=== PATIENT | female | born 1995 | race Two or more races ===

== ENCOUNTER 2020-10-18 15:13 | Emergency (ER) | payer OTHER, SELFPAY ==
[2020-10-18 15:14] VITALS: BP 129/80; PULSE 80; RESP 16; TEMP 36.2; O2SAT 97; BMI 36.6
--- NOTE | 2020-10-18 16:31 | ED.DENTAL ---
HPI - Dental/Oral General Chief complaint: Dental/Oral Stated complaint: mouth abscess Time Seen by Provider: 10/18/20 16:30 Source: patient Mode of arrival: ambulatory Limitations: language barrier History of Present Illness HPI Narrative: 25 y/o female presenting with left lower dental pain x1 week. She has had pain in this tooth on/off for several months. She reports the pain is now unbearable and she has a hard time sleeping due to the pain. She denies fever, chills, jaw swelling, facial swelling. She has not taken any medications for the pain. MD Complaint: tooth pain Location: Tooth # (20) Teeth map: 1. dental decay and tenderness Onset (ago): day(s) (7-8) Duration: constant Severity: severe Relieving factors: nothing Exacerbating factors: chewing and cold Context: history of dental caries Associated symptoms: gum swelling Treatment prior to arrival: none Related Data Previous Rx's Medication Instructions Recorded clindamycin HCl 300 mg PO Q8H #21 cap 10/18/20 ibuprofen 600 mg PO Q8H PRN #20 tab 10/18/20 tramadol 50 mg PO Q8H PRN #7 tab 10/18/20 Allergies Allergy/AdvReac Type Severity Reaction Status Date / Time No Known Allergies Allergy Verified 10/18/20 15:17 Review of Systems Review of Systems: Constitutional: No Fever, No Chills ENT/Mouth: No sore throat, No Rhinorrhea, No Swallowing Difficulty, +dental pain Cardiovascular: No Chest Pain, No SOB Gastrointestinal: No Nausea, No Vomiting, No Diarrhea, No abdominal Pain Genitourinary: No Dysuria, No Urinary Frequency, No Hematuria Musculoskeletal: No joint pain, No Myalgias Skin: No Skin Lesions, No rash Neuro: No Weakness, No Numbness, No Dizziness, + Headache Psych: No Anxiety/Panic, No Depression Heme/Lymph: No Bruising, No Lymphadenopathy PMFSH Past Medical History Attestation statement: The following information was validated with the patient. Social History Social History Advance Directives: No Advance Directives Information Provided: No Physical Exam Vital Signs: Vital Signs: Last Vital Signs Temp 97.2 F 10/18/20 15:14 Pulse 80 10/18/20 15:14 Resp 16 10/18/20 15:14 BP 129/80 10/18/20 15:14 Pulse Ox 97 10/18/20 15:14 Body Mass Index 36.6 Appearance: Alert. Oriented X3. No acute distress. HEENT: normal external inspection. Tooth #20 in left lower jaw has significant dental decay with moderate tenderness, mild gingival erythema and tenderness, no fluctance or mass. Neck is supple without LAD. no facial swelling. No trismus CVS: Normal heart rate and rhythm. Pulses normal. Respiratory: No respiratory distress. Skin: Skin warm and dry. Normal skin color. Normal skin turgor. No rashes. Extremities: atraumatic, no edema Neuro: Oriented X 3. No motor deficit. No sensory deficit. Course Course Course Narrative: 25 y/o female presenting with acute on chronic tooth pain - no abscess on exam. Will give Rx for abx, pain meds and NSAID. Given dental referral sheet and she agrees to f/u with dental this week. MDM - Dental/Oral Differential Diagnosis Differential diagnosis: Likely gingival abscess, dental caries, toothache, dental abscess and fracture of tooth Critical Care Time Critical Care Time Critical Care Time: No Discharge Plan Discharge Clinical Impression: Toothache Patient Disposition: Home, Self-Care Instructions: Toothache (ED) Additional Instructions: Your tooth is infected but there is no drainable abscess at this time. Take the prescribed antibiotic as directed. Follow up with a dentist within one week. If pain worsens or if you develop facial swelling, come back to the ER for further evaluation. Prescriptions: New clindamycin HCl 300 mg capsule 300 mg PO Q8H Qty: 21 RF: 0 ibuprofen 600 mg tablet 600 mg PO Q8H PRN (Reason: fever or pain) Qty: 20 RF: 0 tramadol 50 mg tablet 50 mg PO Q8H PRN (Reason: pain) Qty: 7 RF: 0 Discharge Date/Time: 10/18/20 16:54 Print Language: Bulgarian
== END 2020-10-18 16:54 | disposition home or self-care (01) ==
PROVIDERS: Emergency Provider Emergency Medicine
DX: K08.89 Other specified disorders of teeth and supporting structures (principal)
CPT/HCPCS: 99283

== ENCOUNTER 2021-03-28 08:13 | Outpatient (REF) | payer OTHER, SELFPAY ==
[2021-03-28 11:30] LABS: Glucose Urine UA NEG (NEG); Leukocyte Esterase Urine NEG (NEG); Nitrite Urine NEG (NEG); Specific Gravity - Urine >= 1.030 (1.005-1.025); Urine Blood NEG (NEG); Urine Ketones NEG (NEG); Urine Protein TRACE MG/DL (NEG-TRACE)
[2021-03-28 11:36] LABS: Appearance Urine TURBID; Color Urine YELLOW
[2021-03-28 11:37] LABS: Hematocrit 36.4 % (37-47); Hemoglobin 11.6 g/dl (12.0-16.0); Mean Corpuscular HGB Conc 31.9 g/dl (31.0-35.0); Mean Corpuscular Hemoglobin 27.7 pg (27.0-33.0); Mean Corpuscular Volume 86.9 fL (80-98); Mean Platelet Volume 10.7 fL (9.4-12.3); Platelet Count 313 X10*3/uL (160-400); Red Blood Count 4.19 X10*6/uL (4.20-5.50); Red Cell Distribution Width 14.6 % (11.0-16.0); White Blood Count 7.7 X10*3/uL (4.8-10.8)
[2021-03-28 11:46] LABS: Alanine Aminotransferase 16 U/L (0-31); Albumin Level 4.3 g/dL (3.5-5.0); Alkaline Phosphatase 78 U/L (39-117); Anion Gap 14 (12-20); Aspartate Amino Transferase 18 U/L (5-31); Bilirubin Total 0.4 mg/dL (0.0-1.0); Blood Urea Nitrogen 13 mg/dL (9-16); Carbon Dioxide 23 mmol/L (22-29); Chloride 105 mmol/L (96-108); Cholesterol 151 mg/dL; Estimated Glomerular Filt Rate > 60; Glucose Fasting 92 mg/dL (60-99); HDL Cholesterol 50 mg/dL; LDL Cholesterol Calculated 87 mg/dl; Potassium 4.4 mmol/L (3.3-5.1); Sodium 138 mmol/L (135-145); Total Protein 7.3 g/dL (6.5-8.0); Triglycerides 72 mg/dL
[2021-03-28 11:57] LABS: Amorphous Sediment Urine 4+ /LPF; RBC Urine 0-2 /HPF (0); Squamous Epithelial Cell Urine 1+ /LPF; WBC Urine 0-2 /HPF (0-4)
[2021-03-28 11:58] LABS: TSH reflex Free T4 2.17 uIU/mL (0.32-4.0)
== END 2021-03-28 08:14 | disposition home or self-care (01) ==
LOC: HO.HMGCLDS 08:13
PROVIDERS: PCP Internal Medicine; Visit Provider Internal Medicine
DX: Z00.00 Encounter for general adult medical examination without abnormal findings (principal); J45.909 Unspecified asthma, uncomplicated; F32.9 Major depressive disorder, single episode, unspecified
CPT/HCPCS: 36415; 80053; 80061; 81001; 84443; 85027

== ENCOUNTER 2021-05-03 09:10 | Outpatient (REF) | payer OTHER, SELFPAY ==
[2021-05-03 09:20] VITALS: BP 116/77; PULSE 77; RESP 16; TEMP 36.9; O2SAT 100; BMI 39.0
--- NOTE | 2021-05-03 09:28 | ED.GENADULT ---
HPI - General Adult General Chief complaint: Extremity Injury, Lower Stated complaint: groin pain Time Seen by Provider: 05/03/21 09:18 Source: patient Mode of arrival: ambulatory Limitations: no limitations History of Present Illness HPI narrative: 26-year-old female with past medical history of asthma and depression his here today for complaining of left groin pain. 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 She has been using naproxen and reports that the pain is better. Patient is here today reporting that she continues to work and using her muscles and her symptoms are not getting any better. Patient denies fall, or any other injury. Related Data Previous Rx's Medication Instructions Recorded albuterol sulfate 90 mcg/actuation 2 puff INHALATION Q6H PRN #8.5 g 03/28/21 aerosol inhaler nicotine 14 mg/24 hr daily 1 patch TRANSDERMAL DAILY #28 ea 03/28/21 transdermal patch cyclobenzaprine 10 mg tablet 10 mg PO BID PRN #10 tab 05/03/21 Allergies Allergy/AdvReac Type Severity Reaction Status Date / Time No Known Allergies Allergy Verified 03/28/21 07:47 Review of Systems Review of Systems: Constitutional : No Weight loss, No Fever, No Chills, No Night Sweats, No Fatigue, No Malaise ENT/Mouth : No Hearing loss, No Ear Pain, No Nasal Congestion, No Sinus Pain, No Hoarseness, No sore throat, No Rhinorrhea, No Swallowing Difficulty Eyes: No Eye Pain, No Swelling, No Redness, No Foreign Body, No Discharge, No Vision Changes Cardiovascular : No Chest Pain, No SOB, No Dyspnea on Exertion, No Orthopnea, No Edema, No Palpitations Respiratory : No Cough, No Sputum, No Wheezing, No Smoke Exposure, No Dyspnea Gastrointestinal : No Nausea, No Vomiting, No Diarrhea, No Constipation, No abdominal Pain, No Hematochezia, No Melena Genitourinary : no irregular bleeding, No Dysuria, No Urinary Frequency, No Hematuria, No Urinary Incontinence, No Urgency, No Flank Pain, No Urinary Flow Changes, No Hesitancy Musculoskeletal : No joint pain, No Myalgias, No Joint Swelling, left groin pain Skin : No Skin Lesions, No rash Neuro : No Weakness, No Numbness, No Paresthesias, No Loss of Consciousness, No Dizziness, No Headache Psych : No Anxiety/Panic, No Depression, No SI/HI/AH/VH, No Social Issues, Yes all other systems are reviewed and are negative [facility] Past Medical History Medical History (Updated 05/03/21 @ 09:42 by Isabelle Peres [facility]) Annual physical exam Asthma Depression Overweight Family History Family History (Updated 03/28/21 @ 07:48 by Ruthann Salcedo [facility]) Father No problems noted. Mother No problems noted. 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 Alcohol intake: current Alcohol intake frequency: a few times a week Patient Tobacco Use Status: Current everyday Tobacco user Cigarettes Per Day: 6 Years Smoked: 4 e-Cigarette/Vaping Use: Never Used Advance Directives: No Advance Directives Information Provided: Yes Patient : No service: No Current occupational status: employed Physical Exam Vital Signs: Vital Signs: Last Vital Signs Temp 98.4 F 05/03/21 09:20 Pulse 77 05/03/21 09:20 Resp 16 05/03/21 09:20 BP 116/77 05/03/21 09:20 Pulse Ox 100 05/03/21 09:20 Body Mass Index 39.0 Const: General: healthy appearing, no acute distress and well developed Nutritional Appearance: well nourished Orientation/consciousness: patient oriented x3 Neck: Neck: Yes normal visual inspection, Yes full ROM and Yes trachea midline Thyroid: Thyroid normal Resp: Auscultation: clear to auscultation bilaterally Cardio: Rate: regular rate Rhythm: regular rhythm GI: Inspection: Yes normal to inspection and No distended Palpation (GI): Soft to palpation, not firm, nontender, no guarding and No hepatosplenomegaly present Auscultation: normal bowel sounds Skin: General skin exam: elasticity normal, turgor normal and dry skin Neuro: General: patient oriented x3 Extrem: Other: Left groin tenderness Course Course Course Narrative: 26-year-old female is here today for complaining of groin pain. 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 Patient denies any swelling, abscess or tenderness. Patient has good pulses in inguinal, popliteal and pedal areas. Will send her home with cyclobenzaprine. Patient will follow-up with her PCP for physical therapy if warm compresses and medication will not help. Patient is agreeable to this plan Discharge Plan Discharge Clinical Impression: Groin pain Qualifiers: Laterality: left Qualified Code(s): R10.32 - Left lower quadrant pain Patient Disposition: Home, Self-Care Interventions: ED Discharge Assessment Last Done: 05/03/21 10:22 Discharge Date/Time: 05/03/21 10:23
[2021-05-03] MEDS: Cyclobenzaprine HCl 10 MG TABLET PO (09:45)
== END 2021-05-03 10:50 | disposition home or self-care (01) ==
LOC: HO.ED 10:49
PROVIDERS: Emergency Provider Emergency Medicine; PCP Internal Medicine; Visit Provider Nurse Practitioner Family
DX: Z04.2 Encounter for examination and observation following work accident (principal); R10.32 Left lower quadrant pain; F17.210 Nicotine dependence, cigarettes, uncomplicated
CPT/HCPCS: 99283

== ENCOUNTER 2021-05-12 14:07 | Outpatient (REF) | payer OTHER, SELFPAY ==
--- NOTE | ~2021-05-12 | XR_ITS ---
EXAMINATION: XR HIP, LEFT CLINICAL INFORMATION: Pain COMPARISON: None TECHNIQUE: Two views of the left hip. FINDINGS: Bones and soft tissues are normal. No fracture. Alignment is anatomic. Hip joint space is maintained. XR/XR hip LT min 2V IMPRESSION: Normal left hip.
== END 2021-05-12 14:08 | disposition home or self-care (01) ==
LOC: HO.HMGCX 14:07
PROVIDERS: PCP Internal Medicine; Visit Provider Internal Medicine
DX: Z13.89 Encounter for screening for other disorder (principal)
CPT/HCPCS: 73502

== ENCOUNTER 2021-12-08 20:19 | Emergency (ER) | payer OTHER, SELFPAY ==
[2021-12-08 22:00] VITALS: BP 137/65; PULSE 74; RESP 14; O2SAT 100; BMI 39.5
--- NOTE | 2021-12-08 23:26 | ED.GENADULT ---
HPI - General Adult General Chief complaint: General Medical Stated complaint: Pelvic pain Time Seen by Provider: 12/08/21 22:37 Source: patient and RN notes reviewed Mode of arrival: ambulatory Limitations: language barrier and other (Friend translating per patient's request) History of Present Illness HPI narrative: Patient is here today for right inguinal pain. Patient reports that she has been having this pain for few months and just recently the pain is getting worse. 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 Patient states that today she had to leave work because her pain was getting worse. Patient reports that there is no radiation of the pain to the any other areas. Patient denies any urinary symptoms. Patient denies any swelling, ingrown hair, no fever chills. Patient states that the pain is worse when she is standing on her legs as well as when she is touching her upper thigh muscle. Patient denies any injury. Denies any hip pain. Onset (ago): month(s) Related Data Previous Rx's Medication Instructions Recorded albuterol sulfate 90 mcg/actuation 2 puff INHALATION Q6H PRN #8.5 g 03/28/21 aerosol inhaler meloxicam 15 mg tablet 15 mg PO DAILY #10 tab 05/12/21 sumatriptan succinate 50 mg tablet See Rx Instructions PO .COMPLEX #7 10/05/21 tab cyclobenzaprine 10 mg tablet 10 mg PO BEDTIME PRN #10 tab 12/09/21 ibuprofen 600 mg tablet 600 mg PO Q8H PRN #20 tab 12/09/21 Allergies Allergy/AdvReac Type Severity Reaction Status Date / Time No Known Allergies Allergy Verified 05/12/21 13:36 Review of Systems Review of Systems: Constitutional : No Weight loss, No Fever, No Chills, No Night Sweats, No Fatigue, No Malaise ENT/Mouth : No Hearing loss, No Ear Pain, No Nasal Congestion, No Sinus Pain, No Hoarseness, No sore throat, No Rhinorrhea, No Swallowing Difficulty Eyes: No Eye Pain, No Swelling, No Redness, No Foreign Body, No Discharge, No Vision Changes Cardiovascular : No Chest Pain, No SOB, No Dyspnea on Exertion, No Orthopnea, No Edema, No Palpitations Respiratory : No Cough, No Sputum, No Wheezing, No Smoke Exposure, No Dyspnea Gastrointestinal : No Nausea, No Vomiting, No Diarrhea, No Constipation, No abdominal Pain, No Hematochezia, No Melena Genitourinary : no irregular bleeding, No Dysuria, No Urinary Frequency, No Hematuria, No Urinary Incontinence, No Urgency, No Flank Pain, No Urinary Flow Changes, No Hesitancy Musculoskeletal : No joint pain, No Myalgias, No Joint Swelling, right groin pain Skin : No Skin Lesions, No rash Neuro : No Weakness, No Numbness, No Paresthesias, No Loss of Consciousness, No Dizziness, No Headache Psych : No Anxiety/Panic, No Depression, No SI/HI/AH/VH, No Social Issues, Yes all other systems are reviewed and are negative [facility] Past Medical History Medical History (Updated 12/09/21 @ 00:23 by Isabelle Peres [facility]) Annual physical exam Asthma Depression Headache Overweight Family History Family History Father No problems noted. Mother No problems noted. 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 Alcohol intake: current Alcohol intake frequency: a few times a week Patient Tobacco Use Status: Current everyday Tobacco user Cigarettes Per Day: 6 Years Smoked: 4 e-Cigarette/Vaping Use: Never Used Advance Directives: No Patient : No service: No Current occupational status: employed Physical Exam ED Vital Signs: Vital Signs - 24 hr 12/08/21 22:00 Pulse Rate 74 Respiratory Rate 14 Blood Pressure 137/65 Pulse Oximetry 100 BMI result Body Mass Index 39.5 Const General: cooperative, healthy appearing and comfortable Neck Neck: Yes normal visual inspection, Yes full ROM, Yes trachea midline and Yes supple Resp Effort & Inspection: normal respiratory effort and able to speak in complete sentences Auscultation: clear to auscultation bilaterally Cardio Rate: regular rate Heart sounds: S1 normal heart sound present and S2 normal heart sound present General: Yes no CVA tenderness Back/Spine/Pelvis Back: no CVA tenderness Thoracic/Lumbar Spine: thoracic and lumbar spine normal to inspection Pelvis: no pain with anterior-posterior compression Extrem Other: Right inguinal pain and right upper thigh tenderness. General: Yes normal to inspection, Yes full ROM and Yes capillary refill normal Course Course Course Narrative: Patient is here today for right inguinal pain. Patient reports that she has been having this pain for few months and just recently the pain is getting worse. 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 Patient states that today she had to leave work because her pain was getting worse. Patient reports that there is no radiation of the pain to the any other areas. Patient denies any urinary symptoms. Patient denies any swelling, ingrown hair, no fever chills. Patient states that the pain is worse when she is standing on her legs as well as when she is touching her upper thigh muscle. Patient denies any injury. Denies any hip pain. Mild tenderness to inguinal area mostly to her psoas major, sartorius and pectineus muscle. Will medicate her with ibuprofen and cyclobenzaprine. Patient will be sent home to follow-up with her PCP Reevaluation(s) Reevaluation #1: Patient reports that she is feeling much better after cyclobenzaprine. Patient will be discharged home to follow-up with her PCP. She might knee physical therapy. 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 Discharge Plan Discharge Clinical Impression: Groin pain, Muscle pain Patient Disposition: Home, Self-Care Instructions: Muscle Strain (ED), Groin Pain (ED) Additional Instructions: Lo vieron aqu? hoy por dolor inguinal derecho y distensi?n muscular. Evite recoger objetos pesados ??nadira los pr?ximos d?as. Puede basilio un relajante muscular nadira los pr?ximos dos d?as para ayudarlo con el dolor. Tambi?n puede basilio ibuprofeno para ayudar con la inflamaci?n. Puede regresar al departamento de emergencias si hossein s?ntomas empeoran o si experimenta alg?n s?ntoma preocupante adicional Prescriptions: New cyclobenzaprine 10 mg tablet 10 mg PO BEDTIME PRN (Reason: muscle spasm) Qty: 10 0RF ibuprofen 600 mg tablet 600 mg PO Q8H PRN (Reason: pain) Qty: 20 0RF No Action sumatriptan succinate 50 mg tablet See Rx Instructions PO .COMPLEX Qty: 7 5RF Rx Instructions: take 1 tab at onset of headache; if no relief may repeat 1 tab after at least 2 hrs; max = 4 tabs/24 hr PO albuterol sulfate 90 mcg/actuation HFA aerosol inhaler 2 puff inhalation Q6H PRN (Reason: shortness of breath or wheezing) Qty: 8.5 0RF meloxicam 15 mg tablet 15 mg PO DAILY Qty: 10 0RF Referrals: Tanya Billy MD [Primary Care Provider] - 1 week (Groin pain, muscle strain) Stand Alone Forms: Work/School Release Interventions: ED Discharge Assessment Last Done: 12/09/21 00:38 Discharge Date/Time: 12/09/21 00:40
[2021-12-08] MEDS: Ibuprofen 600 MG TABLET PO (23:46)
[2021-12-08] MEDS: Cyclobenzaprine HCl 10 MG TABLET PO (23:46)
== END 2021-12-09 00:40 | disposition home or self-care (01) ==
PROVIDERS: Emergency Provider Emergency Medicine Emergency Medical Services; PCP Internal Medicine
DX: R10.30 Lower abdominal pain, unspecified (principal); M79.10 Myalgia, unspecified site
CPT/HCPCS: 99283; 99284

== ENCOUNTER 2022-01-08 13:00 | Outpatient (RCR) | payer OTHER, SELFPAY ==
--- NOTE | 2021-12-13 09:58 | MHC.PT.EP ---
[facility] [place] Office [place] Office [place] Office [address] Pratima Herrera [address] [phone] F: [phone] F: [phone] F: [phone] F: [phone] Physical Therapy Plan of Care Date of Evaluation: Date of Surgery: Diagnosis: L lower quadrant pain Assessment: 26 y/o female referred to PT with lower quadrant pain. She reports R groin pain for several months of insidious onset that results in pain and difficulty with walking, standing, sit to stands, stairs, and lifting heavy boxes. Examination shows decreased hip/ lumbar AROM, decreased muscle length of quads/hip ER/hip flexors, poor glut activation, decreased R hip flexor/glut strength, SI dysfunction, and impaired postural awareness. S/s consistent with hip flexor tendinopathy and ? overlapping SI dysfunction. Recommend PT 2x/week for 5 weeks to address impairments, implement HEP, and optimize functional mobility. Frequency and Duration: The patient will be seen 2x/week for 5 weeks Short Term Goals: 3 weeks 1. compliant with HEP 2. pt will report 50% decrease in pain with walking (IR 8/10) Senior Living Goals: 5 weeks 1. I with HEP and self management of sx 2. Pt will be able to ambulate > 30 min with pain < 3/10 3. Pt will be able to lift > 20# box from floor to hips with pain < 3/10 and proper mechanics. Treatment Plan: Modalities to reduce pain, spasms and effusion. Manual therapy to restore motion and function. Therapeutic exercise to improve strength and flexibility. Neuromuscular re-education for posture and balance. Therapeutic activities to return to functional activities of daily living. Electronically signed by: Kristina German PT Please sign and return to therapist. Thank you for your referral.
--- NOTE | 2022-02-13 13:47 | MHC.PT.DC ---
[facility] [place] Office [place] Office [place] Office [address] Pratima Herrera [address] [facility] [phone] F: [phone] F: [phone] F: [phone] F: [phone] Physical Therapy Discharge Report Diagnosis: L lower quadrant pain Date of Surgery: Date of Evaluation: 12/13/21 Date of Discharge: 02/13/22 Treatments to Date: 7 Cancellations to Date: 3 No Shows to Date: 0 Discharge Status: Improved Function Independent with HEP Visit Non-compliance Discharge Summary: Pt did not f/u with final visits and is therefore d/c At time of last visit, she was demonstrating improved tolerance for exercise, improved body mechanics, and strength. Electronically signed by: Kristina German PT Please sign and return to therapist. Thank you for your referral.
== END 2022-02-13 13:47 | disposition home or self-care (01) ==
LOC: HO.PT 13:00
PROVIDERS: Visit Provider Internal Medicine
DX: R10.32 Left lower quadrant pain (principal)
CPT/HCPCS: 97110; 97161; 97530

== ENCOUNTER 2022-03-29 08:42 | Outpatient (REF) | payer OTHER, SELFPAY ==
[2022-03-29 11:04] LABS: MANUAL DIFF FLAG NO
[2022-03-29 11:14] LABS: Appearance Urine CLEAR; Color Urine YELLOW; Glucose Urine UA NEG (NEG); Leukocyte Esterase Urine NEG (NEG); Nitrite Urine NEG (NEG); PH 5.5 (5.0-8.0); Specific Gravity - Urine >= 1.030 (1.005-1.025); Urine Blood NEG (NEG); Urine Ketones NEG (NEG); Urine Protein TRACE MG/DL (NEG-TRACE)
[2022-03-29 11:16] LABS: Basophils Percent Auto 0.4 % (0-2); Eosinophils Absolute Auto 0.1 X10*3/uL (0.0-0.4); Eosinophils Percent Auto 1.2 % (0-4); Hematocrit 36.5 % (37.0-47.0); Hemoglobin 11.9 g/dl (12.0-16.0); Imm Gran Abs Auto 0.04 X10*3/uL (0.00-0.03); Imm Gran Pct Auto 0.5 % (0.0-0.4); Lymphocytes Absolute Auto 1.9 X10*3/uL (1.2-4.9); Lymphocytes Percent Auto 22.3 % (20-40); Mean Corpuscular HGB Conc 32.6 g/dl (31.0-35.0); Mean Corpuscular Hemoglobin 28.3 pg (27.0-33.0); Mean Corpuscular Volume 86.7 fL (80.0-98.0); Mean Platelet Volume 11.3 fL (9.4-12.3); Monocytes Absolute Auto 0.7 X10*3/uL (0.1-1.2); Monocytes Percent Auto 7.6 % (2-11); Neutrophils Absolute Auto 5.8 x10*3/uL (2.0-8.3); Platelet Count 303 X10*3/uL (160-400); Red Blood Count 4.21 X10*6/uL (4.20-5.50); Red Cell Distribution Width 14.1 % (11.0-16.0); White Blood Count 8.6 X10*3/uL (4.8-10.8)
[2022-03-29 11:44] LABS: Mucus Urine 1+ /LPF; RBC Urine 0 /HPF (0); Squamous Epithelial Cell Urine 3+ /LPF; WBC Urine 0 /HPF (0-4)
[2022-03-29 12:00] LABS: TSH reflex Free T4 1.67 uIU/mL (0.32-4.0)
[2022-03-29 12:12] LABS: Alanine Aminotransferase 22 U/L (0-31); Albumin Level 4.3 g/dL (3.5-5.0); Alkaline Phosphatase 66 U/L (39-117); Anion Gap 11 (12-20); Aspartate Amino Transferase 19 U/L (5-31); Bilirubin Total 0.8 mg/dL (0.0-1.0); Blood Urea Nitrogen 15 mg/dL (9-16); Calcium 9.1 mg/dL (8.4-10.2); Carbon Dioxide 24 mmol/L (22-29); Chloride 106 mmol/L (96-108); Cholesterol 146 mg/dL; Estimated Glomerular Filt Rate > 60; Glucose Fasting 104 mg/dL (60-99); HDL Cholesterol 44 mg/dL; LDL Cholesterol Calculated 86 mg/dl; Potassium 4.5 mmol/L (3.3-5.1); Sodium 136 mmol/L (135-145); Total Protein 7.2 g/dL (6.5-8.0); Triglycerides 82 mg/dL
== END 2022-03-29 08:43 | disposition home or self-care (01) ==
LOC: HO.HMGCLDS 08:42
PROVIDERS: Visit Provider Internal Medicine
DX: Z00.00 Encounter for general adult medical examination without abnormal findings (principal); K21.9 Gastro-esophageal reflux disease without esophagitis
CPT/HCPCS: 36415; 80053; 80061; 81001; 84443; 85025

== ENCOUNTER 2022-09-27 09:03 | Outpatient (REF) | payer OTHER, SELFPAY ==
--- NOTE | 2022-09-27 09:09 | EMG_ITS ---
Right median and ulnar motor and sensory studies were performed. Right radial sensory study was performed and paraspinal muscles were tested with a needle. IMPRESSION: Mild right ulnar neuropathy across cubital tunnel. MD BERLIN Vuong/PK / [id number]
== END 2022-09-27 09:04 | disposition home or self-care (01) ==
LOC: HO.NEURO 09:03
PROVIDERS: PCP Internal Medicine; Visit Provider Internal Medicine
DX: G56.02 Carpal tunnel syndrome, left upper limb (principal)
CPT/HCPCS: 95886; 95909

== ENCOUNTER 2022-10-17 15:27 | Emergency (ER) | payer OTHER, SELFPAY ==
--- NOTE | ~2022-10-17 | XR_ITS ---
EXAMINATION: XR CHEST CLINICAL INFORMATION: Chest pain. COMPARISON: None TECHNIQUE: 2 views of the chest were obtained. FINDINGS: No significant abnormality is noted involving the heart, lungs, mediastinum, bony thorax or soft tissues. XR/XR chest 2V IMPRESSION: No acute cardiopulmonary process.
[2022-10-17 15:36] VITALS: BP 126/73; PULSE 78; RESP 19; TEMP 36.6; O2SAT 100; BMI 37.4
--- NOTE | 2022-10-17 15:37 | ED_ITS ---
HPI - Chest Pain General Chief Complaint: Chest Pain <Aranza Mendoza NP - Last Filed: 10/17/22 15:39> Stated Complaint: SOB, chest pain <Aranza Mendoza NP - Last Filed: 10/17/22 15:39> Time Seen by Provider: 10/17/22 17:36 <Aranza Mendoza NP - Last Filed: 10/17/22 15:39> Source: patient <Swapna Goss MD - Last Filed: 10/17/22 17:57> Mode of arrival: ambulatory <Swapna Goss MD - Last Filed: 10/17/22 17:57> Limitations: no limitations <Swapna Goss MD - Last Filed: 10/17/22 17:57> History of Present Illness HPI narrative: Patient comes to the emergency room complaining chest pain and shortness of breath for 2 weeks. Patient states that when she takes a breath, it hurts more. Patient denies shortness of breath at this time, states that she feels fairly well, complaining of achy pain on the left side of the chest, worse when she puts pressure on it. Patient has fever chills, no recent URI symptoms <Swapna Goss MD - Last Filed: 10/17/22 17:57> Related Data Home Medications: Previous Rx's Medication Instructions Recorded albuterol sulfate 90 mcg/actuation 2 puff inhalation Q6H PRN 03/28/21 aerosol inhaler shortness of breath or wheezing #8.5 grams ibuprofen 600 mg tablet 600 mg PO Q8H PRN pain #20 tabs 12/09/21 omeprazole 20 mg capsule,delayed 20 mg PO DAILY #30 caps 03/29/22 release sumatriptan succinate 50 mg tablet See Rx Instructions PO .COMPLEX #7 07/06/22 tabs nortriptyline 25 mg capsule 25 mg PO BEDTIME #30 caps 07/30/22 ibuprofen 600 mg tablet 600 mg PO Q8H PRN fever or pain 10/17/22 #20 tabs <Aranza Mendoza NP - Last Filed: 10/17/22 15:39> Allergies/Adverse Reactions: Allergies Allergy/AdvReac Type Severity Reaction Status Date / Time No Known Allergies Allergy Verified 07/30/22 10:16 <Aranza Mendoza NP - Last Filed: 10/17/22 15:39> Review of Systems Review of Systems: Constitutional : No Weight loss, No Fever, No Chills, No Night Sweats, No Fatigue, No Malaise ENT/Mouth : No Hearing loss, No Ear Pain, No Nasal Congestion, No Sinus Pain, No Hoarseness, No sore throat, No Rhinorrhea, No Swallowing Difficulty Eyes: No Eye Pain, No Swelling, No Redness, No Foreign Body, No Discharge, No Vision Changes Cardiovascular : Complaining of chest pain for 2 weeks No SOB, No Dyspnea on Exertion, No Orthopnea, No Edema, No Palpitations Respiratory : No Cough, No Sputum, No Wheezing, No Smoke Exposure, No Dyspnea Gastrointestinal : No Nausea, No Vomiting, No Diarrhea, No Constipation, No abdominal Pain, No Hematochezia, No Melena Genitourinary : no irregular bleeding, No Dysuria, No Urinary Frequency, No Hematuria, No Urinary Incontinence, No Urgency, No Flank Pain, No Urinary Flow Changes, No Hesitancy Musculoskeletal : No joint pain, No Myalgias, No Joint Swelling Skin : No Skin Lesions, No rash Neuro : No Weakness, No Numbness, No Paresthesias, No Loss of Consciousness, No Dizziness, No Headache Psych : No Anxiety/Panic, No Depression, No SI/HI/AH/VH, No Social Issues, Heme/Lymph: No Bruising, No Bleeding,No Lymphadenopathy Endocrine : No Polyuria, No Polydipsia, No Temperature Intolerance <Swapna Goss MD - Last Filed: 10/17/22 17:57> [facility] Past Medical History Medical History: Medical History Annual physical exam Asthma Depression Headache Leg pain, medial Overweight <Aranza Mendoza NP - Last Filed: 10/17/22 15:39> Family History Family History: Family History Father No problems noted. Mother No problems noted. 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 Alcohol intake: current Alcohol intake frequency: a few times a week Patient Tobacco Use Status: Current everyday Tobacco user Cigarettes Per Day: 5 Years Smoked: 4 e-Cigarette/Vaping Use: Never Used Advance Directives: No Advance Directives Information Provided: No service: No Current occupational status: employed Cognitive needs: No Hearing needs: No Vision needs: No <Aranza Mendoza NP - Last Filed: 10/17/22 15:39> Physical Exam Vital Signs: Vital Signs: Last Vital Signs Temp 98 F 10/17/22 15:36 Pulse 78 10/17/22 15:36 Resp 19 10/17/22 15:36 BP 126/73 10/17/22 15:36 Pulse Ox 100 10/17/22 15:36 O2 Del Method 10/17/22 15:36 BMI result Body Mass Index 37.4 <Aranza Mendoza NP - Last Filed: 10/17/22 15:39> Vital Signs: Last Vital Signs Temp 98 F 10/17/22 15:36 Pulse 78 10/17/22 15:36 Resp 19 10/17/22 15:36 BP 126/73 10/17/22 15:36 Pulse Ox 100 10/17/22 15:36 O2 Del Method 10/17/22 15:36 BMI result Body Mass Index 37.4 <Swapna Goss MD - Last Filed: 10/17/22 17:57> Const: Other: Appearance: Alert. Oriented X3. No acute distress. Eyes: Pupils equal, round and reactive to light. ENT: Pharynx normal. Neck: Normal inspection. Neck supple. No lymph nodes noted. No crepitus CVS: Normal heart rate and rhythm. Pulses normal. Normal S1 and S2, reproducible chest pain to palpation Respiratory: No respiratory distress. Breath sounds normal. No Wheezing. No rales Abdomen: Soft and nontender. No rigidity. No distention. Skin: Skin warm and dry. Normal skin color. Normal skin turgor. Extremities: No lower extremity edema. No Lacerations. No Rash Neuro: Oriented X 3. No motor deficit. No sensory deficit. Moving all extremities. No slurred speech. CN 2 through 12 grossly intact Psych: calm, cooperative, normal affect <Swapna Goss MD - Last Filed: 10/17/22 17:57> Course Course Course Narrative: This is rapid medical exam. Deferred additional HPI, ROS, PE to primary provider. 27 yo female with history of asthma here with chest pain, shortnesss of breath x 1 week. CP worsened with laying flat, feels better with sitting up. +shortness of breath with exertion. No cough, fever, leg swelling/pain. No rec ent travel, sick contact. VSS <Aranza Mendoza NP - Last Filed: 10/17/22 15:39> Medical Decision Making Medical Decision Making [facility] Narrative: -troponin negative, COVID negative, labs unremarkable -EKG my interpretation: normal sinus rhythm, heart rate 77, no ST segment depression or elevation, no T-wave inversion, QTC 454 <Swapna Goss MD - Last Filed: 10/17/22 17:57> Differential Diagnosis Differential Diagnoses: The differential diagnosis associated with the presentation includes (Pleurisy, costochondritis, ACS) <Swapna Goss MD - Last Filed: 10/17/22 17:57> Lab Data [facility] Lab Attestation statement: I reviewed the patient's lab results. <Swapna Goss MD - Last Filed: 10/17/22 17:57> Result Diagrams: 10/17/22 15:55 10/17/22 15:55 <Aranza Mendoza NP - Last Filed: 10/17/22 15:39> Labs: Lab Results 10/17/22 10/17/22 10/17/22 Range/Units 15:55 15:55 15:55 WBC 10.0 (4.8-10.8) X10*3/uL RBC 4.19 L (4.20-5.50) X10*6/uL Hgb 11.9 L (12.0-16.0) g/dl Hct 35.9 L (37.0-47.0) % MCV 85.7 (80.0-98.0) fL MCH 28.4 (27.0-33.0) pg MCHC 33.1 (31.0-35.0) g/dl RDW 13.3 (11.0-16.0) % Plt Count 304 (160-400) X10*3/uL MPV 9.9 (9.4-12.3) fL Immature Gran % (Auto) 0.4 (0.0-0.4) % Neut % (Auto) 71.9 (45-73) % Lymph % (Auto) 20.8 (20-40) % [place] % (Auto) 6.0 (2-11) % Eos % (Auto) 0.5 (0-4) % Baso % (Auto) 0.4 (0-2) % Lymph # (Auto) 2.1 (1.2-4.9) X10*3/uL [place] # (Auto) 0.6 (0.1-1.2) X10*3/uL Eos # (Auto) 0.1 (0.0-0.4) X10*3/uL Baso # (Auto) 0.0 (0.0-0.2) X10*3/uL Abs Immat Gran (auto) 0.04 H (0.00-0.03) X10*3/uL Absolute Neuts (auto) 7.2 (2.0-8.3) x10*3/uL Absolute Nucleated RBC 0.000 (0.0-0.012) X10*3/uL Nucleated RBC % (auto) 0.0 (0.0-0.2) /100WBC Sodium 141 (135-145) mmol/L Potassium 3.7 (3.3-5.1) mmol/L Chloride 105 (96-108) mmol/L Carbon Dioxide 25 (22-29) mmol/L Anion Gap 15 (12-20) BUN 14 (9-16) mg/dL Creatinine 0.76 (0.5-1.4) mg/dL Estim Creat Clear Calc 130.5 Estimated GFR > 60 Random Glucose 77 (60-115) mg/dL Calcium 9.5 (8.4-10.2) mg/dL Total Bilirubin 1.0 (0.0-1.0) mg/dL Direct Bilirubin 0.2 (0.0-0.5) mg/dL AST 17 (5-31) U/L ALT 16 (0-31) U/L Alkaline Phosphatase 73 (39-117) U/L Troponin I High Sens < 3.5 (<3.5-17.0) ng/L Total Protein 7.2 (6.5-8.0) g/dL Albumin 4.4 (3.5-5.0) g/dL COVID-19 ([facility]) (Negative) COVID-19 Clin Com 10/17/22 Range/Units 15:55 WBC (4.8-10.8) X10*3/uL RBC (4.20-5.50) X10*6/uL Hgb (12.0-16.0) g/dl Hct (37.0-47.0) % MCV (80.0-98.0) fL MCH (27.0-33.0) pg MCHC (31.0-35.0) g/dl RDW (11.0-16.0) % Plt Count (160-400) X10*3/uL MPV (9.4-12.3) fL Immature Gran % (Auto) (0.0-0.4) % Neut % (Auto) (45-73) % Lymph % (Auto) (20-40) % [place] % (Auto) (2-11) % Eos % (Auto) (0-4) % Baso % (Auto) (0-2) % Lymph # (Auto) (1.2-4.9) X10*3/uL [place] # (Auto) (0.1-1.2) X10*3/uL Eos # (Auto) (0.0-0.4) X10*3/uL Baso # (Auto) (0.0-0.2) X10*3/uL Abs Immat Gran (auto) (0.00-0.03) X10*3/uL Absolute Neuts (auto) (2.0-8.3) x10*3/uL Absolute Nucleated RBC (0.0-0.012) X10*3/uL Nucleated RBC % (auto) (0.0-0.2) /100WBC Sodium (135-145) mmol/L Potassium (3.3-5.1) mmol/L Chloride (96-108) mmol/L Carbon Dioxide (22-29) mmol/L Anion Gap (12-20) BUN (9-16) mg/dL Creatinine (0.5-1.4) mg/dL Estim Creat Clear Calc Estimated GFR Random Glucose (60-115) mg/dL Calcium (8.4-10.2) mg/dL Total Bilirubin (0.0-1.0) mg/dL Direct Bilirubin (0.0-0.5) mg/dL AST (5-31) U/L ALT (0-31) U/L Alkaline Phosphatase (39-117) U/L Troponin I High Sens (<3.5-17.0) ng/L Total Protein (6.5-8.0) g/dL Albumin (3.5-5.0) g/dL COVID-19 ([facility]) Negative (Negative) COVID-19 Clin Com See Note <Aranza Mendoza, [employer] BU[employer]DER [employer]SEM[employer] - Last Filed: 10/17/22 15:39> Lab Results 10/17/22 10/17/22 10/17/22 Range/Units 15:55 15:55 15:55 WBC 10.0 (4.8-10.8) X10*3/uL RBC 4.19 L (4.20-5.50) X10*6/uL Hgb 11.9 L (12.0-16.0) g/dl Hct 35.9 L (37.0-47.0) % MCV 85.7 (80.0-98.0) fL MCH 28.4 (27.0-33.0) pg MCHC 33.1 (31.0-35.0) g/dl RDW 13.3 (11.0-16.0) % Plt Count 304 (160-400) X10*3/uL MPV 9.9 (9.4-12.3) fL Immature Gran % (Auto) 0.4 (0.0-0.4) % Neut % (Auto) 71.9 (45-73) % Lymph % (Auto) 20.8 (20-40) % [place] % (Auto) 6.0 (2-11) % Eos % (Auto) 0.5 (0-4) % Baso % (Auto) 0.4 (0-2) % Lymph # (Auto) 2.1 (1.2-4.9) X10*3/uL [place] # (Auto) 0.6 (0.1-1.2) X10*3/uL Eos # (Auto) 0.1 (0.0-0.4) X10*3/uL Baso # (Auto) 0.0 (0.0-0.2) X10*3/uL Abs Immat Gran (auto) 0.04 H (0.00-0.03) X10*3/uL Absolute Neuts (auto) 7.2 (2.0-8.3) x10*3/uL Absolute Nucleated RBC 0.000 (0.0-0.012) X10*3/uL Nucleated RBC % (auto) 0.0 (0.0-0.2) /100WBC Sodium 141 (135-145) mmol/L Potassium 3.7 (3.3-5.1) mmol/L Chloride 105 (96-108) mmol/L Carbon Dioxide 25 (22-29) mmol/L Anion Gap 15 (12-20) BUN 14 (9-16) mg/dL Creatinine 0.76 (0.5-1.4) mg/dL Estim Creat Clear Calc 130.5 Estimated GFR > 60 Random Glucose 77 (60-115) mg/dL Calcium 9.5 (8.4-10.2) mg/dL Total Bilirubin 1.0 (0.0-1.0) mg/dL Direct Bilirubin 0.2 (0.0-0.5) mg/dL AST 17 (5-31) U/L ALT 16 (0-31) U/L Alkaline Phosphatase 73 (39-117) U/L Troponin I High Sens < 3.5 (<3.5-17.0) ng/L Total Protein 7.2 (6.5-8.0) g/dL Albumin 4.4 (3.5-5.0) g/dL COVID-19 ([facility]) (Negative) COVID-19 Clin Com 10/17/22 Range/Units 15:55 WBC (4.8-10.8) X10*3/uL RBC (4.20-5.50) X10*6/uL Hgb (12.0-16.0) g/dl Hct (37.0-47.0) % MCV (80.0-98.0) fL MCH (27.0-33.0) pg MCHC (31.0-35.0) g/dl RDW (11.0-16.0) % Plt Count (160-400) X10*3/uL MPV (9.4-12.3) fL Immature Gran % (Auto) (0.0-0.4) % Neut % (Auto) (45-73) % Lymph % (Auto) (20-40) % [place] % (Auto) (2-11) % Eos % (Auto) (0-4) % Baso % (Auto) (0-2) % Lymph # (Auto) (1.2-4.9) X10*3/uL [place] # (Auto) (0.1-1.2) X10*3/uL Eos # (Auto) (0.0-0.4) X10*3/uL Baso # (Auto) (0.0-0.2) X10*3/uL Abs Immat Gran (auto) (0.00-0.03) X10*3/uL Absolute Neuts (auto) (2.0-8.3) x10*3/uL Absolute Nucleated RBC (0.0-0.012) X10*3/uL Nucleated RBC % (auto) (0.0-0.2) /100WBC Sodium (135-145) mmol/L Potassium (3.3-5.1) mmol/L Chloride (96-108) mmol/L Carbon Dioxide (22-29) mmol/L Anion Gap (12-20) BUN (9-16) mg/dL Creatinine (0.5-1.4) mg/dL Estim Creat Clear Calc Estimated GFR Random Glucose (60-115) mg/dL Calcium (8.4-10.2) mg/dL Total Bilirubin (0.0-1.0) mg/dL Direct Bilirubin (0.0-0.5) mg/dL AST (5-31) U/L ALT (0-31) U/L Alkaline Phosphatase (39-117) U/L Troponin I High Sens (<3.5-17.0) ng/L Total Protein (6.5-8.0) g/dL Albumin (3.5-5.0) g/dL COVID-19 ([facility]) Negative (Negative) COVID-19 Clin Com See Note <Swapna Goss MD - Last Filed: 10/17/22 17:57> Independent Interpretation I performed an independent interpretation of an: Plain X-Ray (My interpretation of chest x-ray: Unremarkable) <Swapna Goss MD - Last Filed: 10/17/22 17:57> Radiology Impression Discussion of test interpretation with radiology: I have reviewed the radiologist's reading. <Swapna Goss MD - Last Syed ed: 10/17/22 17:57> Radiologist Impression: FINDINGS: No significant abnormality is noted involving the heart, lungs, mediastinum, bony thorax or soft tissues. XR/XR chest 2V IMPRESSION: No acute cardiopulmonary process. <Swapna Goss MD - Last Filed: 10/17/22 17:57> Discharge Plan Discharge Clinical Impression: Pleurisy <Aranza Mendoza NP - Last Filed: 10/17/22 15:39> Patient Disposition: Home, Self-Care <Aranza Mendoza NP - Last Filed: 10/17/22 15:39> Instructions: Pleurisy (ED) <Aranza Mendoza NP - Last Filed: 10/17/22 15:39> Additional Instructions: Please follow-up with your primary care physician tomorrow. If you have any worsening or new symptoms, please return to the emergency room or call 911 <Aranza Mendoza NP - Last Filed: 10/17/22 15:39> Prescriptions: New ibuprofen 600 mg tablet 600 mg PO Q8H PRN (Reason: fever or pain) Qty: 20 0RF No Action sumatriptan succinate 50 mg tablet See Rx Instructions PO .COMPLEX Qty: 7 5RF Rx Instructions: take 1 tab at onset of headache; if no relief may repeat 1 tab after at least 2 hrs; max = 4 tabs/24 hr PO ibuprofen 600 mg tablet 600 mg PO Q8H PRN (Reason: pain) Qty: 20 0RF albuterol sulfate 90 mcg/actuation HFA aerosol inhaler 2 puff inhalation Q6H PRN (Reason: shortness of breath or wheezing) Qty: 8.5 0RF omeprazole 20 mg capsule,delayed release(DR/EC) 20 mg PO DAILY Qty: 30 1RF nortriptyline 25 mg capsule 25 mg PO BEDTIME Qty: 30 3RF <Aranza Mendoza NP - Last Filed: 10/17/22 15:39>
--- NOTE | 2022-10-17 15:38 | ECG_ITS ---
Test Reason : cp sob Blood Pressure : / mmHG Vent. Rate : 077 BPM Atrial Rate : 077 BPM P-R Int : 158 ms QRS Dur : 086 ms QT Int : 402 ms P-R-T Axes : 042 000 048 degrees QTc Int : 454 ms Normal sinus rhythm Minimal voltage criteria for LVH, may be normal variant ( R in aVL ) Nonspecific T wave abnormality Abnormal ECG No previous ECGs available Referred By: Aranza Mendoza Electronically Signed By:BRITT MEJIA MD
[2022-10-17 16:00] LABS: MANUAL DIFF FLAG NO
[2022-10-17 16:02] LABS: Basophils Percent Auto 0.4 % (0-2); Eosinophils Absolute Auto 0.1 X10*3/uL (0.0-0.4); Eosinophils Percent Auto 0.5 % (0-4); Hematocrit 35.9 % (37.0-47.0); Hemoglobin 11.9 g/dl (12.0-16.0); Imm Gran Abs Auto 0.04 X10*3/uL (0.00-0.03); Imm Gran Pct Auto 0.4 % (0.0-0.4); Lymphocytes Absolute Auto 2.1 X10*3/uL (1.2-4.9); Lymphocytes Percent Auto 20.8 % (20-40); Mean Corpuscular HGB Conc 33.1 g/dl (31.0-35.0); Mean Corpuscular Hemoglobin 28.4 pg (27.0-33.0); Mean Corpuscular Volume 85.7 fL (80.0-98.0); Mean Platelet Volume 9.9 fL (9.4-12.3); Monocytes Absolute Auto 0.6 X10*3/uL (0.1-1.2); Neutrophils Absolute Auto 7.2 x10*3/uL (2.0-8.3); Neutrophils Percent Auto 71.9 % (45-73); Platelet Count 304 X10*3/uL (160-400); Red Blood Count 4.19 X10*6/uL (4.20-5.50); Red Cell Distribution Width 13.3 % (11.0-16.0)
[2022-10-17 16:18] LABS: Alanine Aminotransferase 16 U/L (0-31); Albumin Level 4.4 g/dL (3.5-5.0); Alkaline Phosphatase 73 U/L (39-117); Anion Gap 15 (12-20); Aspartate Amino Transferase 17 U/L (5-31); Bilirubin Direct 0.2 mg/dL (0.0-0.5); Blood Urea Nitrogen 14 mg/dL (9-16); Calcium 9.5 mg/dL (8.4-10.2); Carbon Dioxide 25 mmol/L (22-29); Chloride 105 mmol/L (96-108); Creatinine Clr Calc Pharmacy 130.5; Estimated Glomerular Filt Rate > 60; Glucose Random 77 mg/dL (60-115); Potassium 3.7 mmol/L (3.3-5.1); Sodium 141 mmol/L (135-145); Total Protein 7.2 g/dL (6.5-8.0)
[2022-10-17 16:25] LABS: COVID-19 Test Negative (Negative); IDNOW Serial# BCCEAD1C
[2022-10-17 16:26] LABS: Troponin-I High Sensitivity < 3.5 ng/L (<3.5-17.0)
== END 2022-10-17 18:47 | disposition home or self-care (01) ==
PROVIDERS: Nurse Practitioner Family; Emergency Provider Emergency Medicine; PCP Internal Medicine
DX: R09.1 Pleurisy (principal); R06.02 Shortness of breath; Z20.822 Contact with and (suspected) exposure to COVID-19; E66.3 Overweight; Z68.37 Body mass index [BMI] 37.0-37.9, adult; Z79.899 Other long term (current) drug therapy
CPT/HCPCS: 71046; 80048; 80076; 84484; 85025; 87635; 93005; 99283; 99284

== ENCOUNTER 2023-05-27 13:55 | Outpatient (AMB) | payer OTHER, SELFPAY ==
[2023-05-27 13:56] VITALS: BP 108/70; PULSE 79; O2SAT 98; BMI 40.1
--- NOTE | 2023-05-27 13:56 | MHC.PC.OV ---
Vital Signs 05/27/23 13:56 Height 5 ft 5 in Weight 241 lb BMI 40.1 BP 108/70 Blood Pressure Location Lt brachial Position Sitting Pulse 79 Pulse Source Pulse Oximeter Pulse Oximetry (%) 98 Oxygen Delivery Method Room Air Intake Visit Reasons: Migraines Intake Note: Pt is here today for a sick visit. Pt c/o migraine headaches for last couple of weeks which are getting worst, pt also c/o chest pain. Allergies No Known Allergies Allergy (Verified 05/27/23 13:57) Medication List - Last Reconciled 05/27/23 by Tanya Billy MD albuterol sulfate 90 mcg/actuation 2 puffs inhalation Q6H PRN ibuprofen 600 mg PO Q8H PRN omeprazole 20 mg PO DAILY rimegepant (Nurtec ODT) 75 mg PO Q OTHER DAY Tobacco use date assessed: 05/27/23 Dental Screening Dental Screen Date: 05/27/23 Did you have a dental visit in the last 12 months?: Yes Did you have a dental problem in the last 6 months where you did not have access to dental care?: No Was dental information given to patient?: Patient has dentist HPI Migraines HPI Details Pt presents c/o more frequent migraine BHAT for last 2 weeks. She could not tolerate nortriptyline because it made her drowsy. Patient also tried Imitrex which after initially being effective stopped working. Patient has been under lot of stress because her family moved from [place] and has been living with them. Patient denies any change in vision, weakness or numbness in extremities ,or change in balance. [facility] Medical History Annual physical exam Asthma Depression Headache Leg pain, medial Overweight Family History Father No problems noted. Mother No problems noted. 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 43862 - PHQ-9 Billing: Patient declined-do not bill Source: Developed by Drs. Jean Paul Buckley, Tara Dominguez, Camden Maldonado and colleagues, with an educational katina from [employer]. Thrive Questionnaire Date Thrive assessed: 05/27/23 I am a: Patient What is your living situation today?: I choose not to answer this question Within the past 12 months, did the food you bought not last and you didn't have the money to get more?: I choose not to answer this question Within the past 12 months, did you worry whether your food would run out before you got money to buy more?: I choose not to answer this question Do you have trouble paying for medicines?: I choose not to answer this question Do you have trouble getting transportation to medical appointments?: I choose not to answer this question Do you have trouble paying your heating and electricity bill?: I choose not to answer this question Do you have trouble taking care of your child, family member or friend?: I choose not to answer this question Do you have trouble with day-to-day activities such as bathing, preparing meals, shopping, managing finances, etc.?: I choose not to answer this question Are you currently unemployed and looking for a job?: I choose not to answer this question Are you interested in more education?: I choose not to answer this question AUDIT C Alcohol Use Questionnaire (AUDIT-C) 1. How often do you have a drink containing alcohol?: 2-3 times a week 2. How many drinks containing alcohol do you have on a typical day when you are drinking?: 1 or 2 3. How often do you have six or more drinks on one occasion?: Never Total Score: 3 YASMIN-7 AMB Questionnaire YASMIN-7 Date YASMIN - 7 assessed: 05/27/23 Source: Developed by Drs. Jean Paul Buckley, Tara Dominguez, Camden Maldonado and colleagues, with an educational katina from [employer]. YASMIN-7 Assessment Billing YASMIN-7 Assessment Tool: pt declined-do not bill Review of Systems Const All systems reviewed & are unremarkable except as noted in HPI and below Reports no additional complaints Eyes Reports no additional complaints ENT Reports no additional complaints Card Reports no additional complaints Resp Reports no additional complaints GI Reports no additional complaints Physical exam (Primary Care) Vital Signs: Last Vital Signs Pulse 79 05/27/23 13:56 BP 108/70 05/27/23 13:56 Pulse Ox 98 05/27/23 13:56 Oxygen Delivery Method Room Air 05/27/23 13:56 BMI result Body Mass Index 40.1 Tobacco/Smoking Status: Tobacco use Status Tobacco use date assessed 05/27/23 05/27/23 14:04 Patient Tobacco Use Status Current everyday Tobacco 05/27/23 14:04 e-Cigarette/Vaping Use Never Used 05/27/23 14:04 Thrive Assessment: Date of Thrive Assessment Date Thrive assessed 05/27/23 05/27/23 14:04 Const General: no acute distress HENMT Ears: hearing grossly normal bilaterally Face and sinus: Yes normal facial exam Neck Neck: Yes no lymphadenopathy and Yes supple Resp Effort & Inspection: normal respiratory effort Auscultation: clear to auscultation bilaterally Cardio Rhythm: regular rhythm Heart sounds: S1 normal heart sound present and S2 normal heart sound present Neuro General: CN's II-XI intact bilaterally Cognition (Neuro): normal cognition Gait exam (Neuro): Normal gait present Motor exam (neuro): 5/5 motor strength present throughout Assessment and Plan Assessment & Plan (1) Migraine: Comment: intolerant to Nortryptyline, Imtrex not effective Code(s): G43.909 - Migraine, unspecified, not intractable, without status migrainosus Plan: Patient will try Nurtec and will be referred to Neurology Orders: Referrals Neurology Referral G43.909 - Migraine, unspecified, not intractable, without status migrainosus Medications: New rimegepant (Nurtec ODT) 75 mg PO Q OTHER DAY 30 tabs 3RF Coding Level of Care Code Est Pt Level 3 (10640) Diagnoses Migraine G43.909
== END 2023-05-27 14:42 | disposition home or self-care (01) ==
PROVIDERS: PCP Internal Medicine; Visit Provider Internal Medicine
DX: G43.909 Migraine, unspecified, not intractable, without status migrainosus (principal)
CPT/HCPCS: 99213

== ENCOUNTER 2023-06-14 08:54 | Outpatient (AMB) | payer OTHER, SELFPAY ==
[2023-06-14 09:00] VITALS: BP 96/60; PULSE 71; O2SAT 99; BMI 39.8
--- NOTE | 2023-06-14 09:00 | MHC.PC.OV ---
Vital Signs 06/14/23 09:00 Height 5 ft 5 in Weight 239 lb BMI 39.8 BP 96/60 Blood Pressure Location Rt brachial Position Sitting Pulse 71 Pulse Source Pulse Oximeter Pulse Oximetry (%) 99 Oxygen Delivery Method Room Air Intake Visit Reasons: Annual PE Allergies No Known Allergies Allergy (Verified 06/14/23 09:01) Medication List - Last Reconciled 06/14/23 by Tanya Billy MD albuterol sulfate 90 mcg/actuation 2 puffs inhalation Q6H PRN ibuprofen 600 mg PO Q8H PRN omeprazole 20 mg PO DAILY rimegepant (Nurtec ODT) 75 mg PO Q OTHER DAY Tobacco use date assessed: 06/14/23 HPI Annual PE HPI Details Pt presets for PE PFSH Medical History Leg pain, medial Headache Overweight Depression Annual physical exam Asthma Family History Father No problems noted. Mother No problems noted. 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 Jean Paul Buckley, Tara Dominguez, Camden Maldonado and colleagues, with an educational katina from [id number]. Review of Systems Const All systems reviewed & are unremarkable except as noted in HPI and below Reports no additional complaints Eyes Reports no additional complaints ENT Reports no additional complaints Resp Reports no additional complaints GI Reports no additional complaints Reports no additional complaints Skin/Breast Reports system reviewed and no additional complaints, except as documented Psych Reports no additional complaints Physical exam (Primary Care) Vital Signs: Last Vital Signs Pulse 71 06/14/23 09:00 BP 96/60 06/14/23 09:00 Pulse Ox 99 06/14/23 09:00 Oxygen Delivery Method Room Air 06/14/23 09:00 BMI result Body Mass Index 39.8 Tobacco/Smoking Status: Tobacco use Status Tobacco use date assessed 06/14/23 06/14/23 09:03 Patient Tobacco Use Status Current everyday Tobacco 06/14/23 09:03 e-Cigarette/Vaping Use Never Used 06/14/23 09:03 Thrive Assessment: Date of Thrive Assessment Date Thrive assessed 05/27/23 06/14/23 09:03 Const General: no acute distress HENMT Head: Yes normal to inspection General nose exam: Normal external nose present Face and sinus: Yes normal facial exam Mouth: Normal oral and palatal mucosa present Neck Neck: Yes no lymphadenopathy and Yes supple Resp Effort & Inspection: normal respiratory effort Auscultation: clear to auscultation bilaterally Cardio Rhythm: regular rhythm Heart sounds: S1 normal heart sound present and S2 normal heart sound present GI Inspection: Yes normal to inspection Palpation (GI): Soft to palpation Percussion: Yes normal to percussion Auscultation: normal bowel sounds Assessment and Plan Assessment & Plan (1) Annual physical exam: Code(s): Z00.00 - Encounter for general adult medical examination without abnormal findings Plan: Well-balanced diet regular physical activity discussed with the patient. She will have a fasting blood work today. Patient declined pelvic exam Orders: Orders Comprehensive [place]. Panel Fast Today Z00.00 - Encounter for general adult medical examination without abnormal findings Complete Blood Count Auto Diff Today Z00.00 - Encounter for general adult medical examination without abnormal findings Lipid Panel Today Z00.00 - Encounter for general adult medical examination without abnormal findings HIV Ab/Ag Today Z00.00 - Encounter for general adult medical examination without abnormal findings Hepatitis B,C Profile Today Z00.00 - Encounter for general adult medical examination without abnormal findings Medications: Refilled omeprazole 20 mg PO DAILY 90 caps 1RF Coding Level of Care Code Est Pt Prev Care 18-39y(29781) Diagnoses Annual physical exam Z00.00
== END 2023-06-14 09:58 | disposition home or self-care (01) ==
PROVIDERS: PCP Internal Medicine; Visit Provider Internal Medicine
DX: Z00.00 Encounter for general adult medical examination without abnormal findings (principal); K21.9 Gastro-esophageal reflux disease without esophagitis
CPT/HCPCS: 99395

== ENCOUNTER 2023-06-14 09:43 | Outpatient (REF) | payer OTHER, SELFPAY | END 2023-06-14 09:44 | disposition home or self-care (01) | LOC: HO.HMGCLDS 09:43 | PROVIDERS: PCP Internal Medicine; Visit Provider Internal Medicine | DX: Z00.00 Encounter for general adult medical examination without abnormal findings (principal) | CPT/HCPCS: 36415; 80053; 80061; 85025; 86704; 86706; 86803; 87340; 87389 ==

== ENCOUNTER 2023-12-25 10:05 | Outpatient (AMB) | payer OTHER, SELFPAY ==
[2023-12-25 10:10] VITALS: BP 120/70; PULSE 72; TEMP 36.1; O2SAT 99; BMI 41.6
--- NOTE | 2023-12-25 10:10 | AM.OFFWIN_ITS ---
Intake Vital Signs 3 12/25/23 10:10 Height 5 ft 5 in Weight 250 lb BMI 41.6 BP 120/70 Blood Pressure Location Lt brachial Position Sitting Pulse 72 Pulse Source Pulse Oximeter Temp 97.0 F Temp Source Temporal Artery Scan Pulse Oximetry (%) 99 Oxygen Delivery Method Room Air Intake Visit Reasons: EP pain numbness rt shoulder/arm (lobby) Intake Note: pt is here today for pain numbness rt shoulder started 1 month ago Patient Tobacco Use Status: Current everyday Tobacco user Allergies No Known Allergies Allergy (Verified 12/25/23 10:12) Medication List - Last Reconciled 12/25/23 by Daya White MD albuterol sulfate 90 mcg/actuation 2 puffs inhalation Q6H PRN ibuprofen 600 mg PO Q8H PRN omeprazole 20 mg PO DAILY Do you need a note to return to daycare/school/sports/work: Yes HPI EP pain numbness rt shoulder/arm (lobby) 2 HPI0 Details 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 Came in today with a chief complaint of pain right shoulder which has been happening for the past 1 month On examination she is tender anteriorly with palpation around right shoulder There is no pain with palpation on arm, elbow has full range of motion and wrist and fingers also has full range of motion and exam is benign She is able to lift her shoulder with some soreness Neck is supple She does not want to take any time off from work I have ordered physical therapy for the patient, we will get a baseline x-ray She already have ibuprofen listed in her medication list I have sent refill on that. Patient is to take that with food Follow-up with the primary care [facility] Medical History Leg pain, medial Headache Overweight Depression Annual physical exam Asthma Family History Father No problems noted. Mother No problems noted. 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 Alcohol intake: current Alcohol intake frequency: a few times a week Patient Tobacco Use Status: Current everyday Tobacco user Cigarettes Per Day: 5 Years Smoked: 4 e-Cigarette/Vaping Use: Never Used service: No Current occupational status: employed Cognitive needs: No Hearing needs: No Vision needs: No Review of Systems Const All systems reviewed & are unremarkable except as noted in HPI and below Physical Exam Vital Signs: Last Vital Signs Temp 97.0 F 12/25/23 10:10 Pulse 72 12/25/23 10:10 BP 120/70 12/25/23 10:10 Pulse Ox 99 12/25/23 10:10 Oxygen Delivery Method Room Air 12/25/23 10:10 BMI result Body Mass Index 41.6 Const General: no acute distress Orientation/consciousness: patient oriented x3 Eyes General: appearance normal, both eyes and all related structures Resp Effort & Inspection: normal respiratory effort and able to speak in complete sentences Auscultation: clear to auscultation bilaterally Neuro General: patient oriented x3 Extrem Shoulder/upper arm images: 2 1. 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 Came in today with a chief complaint of pain right shoulder which has been happening for the past 1 month On examination she is tender anteriorly with palpation around right shoulder There is no pain with palpation on arm, elbow has full range of motion and wrist and fingers also has full range of motion and exam is benign She is able to lift her shoulder with some soreness Neck is supple She does not want to take any time off from work I have ordered physical therapy for the patient, we will get a baseline x-ray She already have ibuprofen listed in her medication list I have sent refill on that. Patient is to take that with food Follow-up with the primary care Orders: Orders 2 XR shoulder RT min 2V Today M25.511 - Pain in right shoulder PT Evaluation and Treatment Today M25.511 - Pain in right shoulder Medications: Refilled 2 ibuprofen 600 mg PO Q8H PRN 20 tabs 0RF fever or pain Coding Level of Care Code Est Pt Level 3 (68765) Diagnoses Acute pain of right shoulder M25.511 Chronicity: acute
== END 2023-12-25 10:47 | disposition home or self-care (01) ==
PROVIDERS: PCP Internal Medicine; Visit Provider Internal Medicine
DX: M25.511 Pain in right shoulder (principal)
CPT/HCPCS: 99213

== ENCOUNTER 2023-12-25 10:23 | Outpatient (REF) | payer OTHER, SELFPAY ==
--- NOTE | ~2023-12-25 | XR_ITS ---
EXAMINATION: XR SHOULDER, RIGHT CLINICAL INFORMATION: Right shoulder pain COMPARISON: None available. TECHNIQUE: AP external rotation, Grashey, scapular Y, and axillary views of the right shoulder. FINDINGS: There is mild acromioclavicular osteoarthritis. Glenohumeral joint is well preserved. No fracture. Alignment is anatomic. Soft tissues are normal with no abnormal calcifications. XR/XR shoulder RT min 2V IMPRESSION: Mild acromioclavicular joint arthritis.
== END 2023-12-25 10:24 | disposition home or self-care (01) ==
LOC: HO.HMGCX 10:23
PROVIDERS: PCP Internal Medicine; Visit Provider Internal Medicine
DX: M25.511 Pain in right shoulder (principal)
CPT/HCPCS: 73030

== ENCOUNTER 2024-07-01 08:25 | Outpatient (REF) | payer OTHER, SELFPAY ==
[2024-07-01 10:08] LABS: MANUAL DIFF FLAG NO
[2024-07-01 10:17] LABS: Basophils Absolute Auto 0.1 X10*3/uL (0.0-0.2); Basophils Percent Auto 0.7 % (0-2); Eosinophils Absolute Auto 0.1 X10*3/uL (0.0-0.4); Eosinophils Percent Auto 1.5 % (0-4); Hematocrit 34.6 % (37.0-47.0); Hemoglobin 11.3 g/dl (12.0-16.0); Imm Gran Abs Auto 0.03 X10*3/uL (0.00-0.03); Imm Gran Pct Auto 0.4 % (0.0-0.4); Lymphocytes Absolute Auto 2.2 X10*3/uL (1.2-4.9); Lymphocytes Percent Auto 29.7 % (20-40); Mean Corpuscular HGB Conc 32.7 g/dl (31.0-35.0); Mean Corpuscular Hemoglobin 28.7 pg (27.0-33.0); Mean Corpuscular Volume 87.8 fL (80.0-98.0); Mean Platelet Volume 10.1 fL (9.4-12.3); Monocytes Absolute Auto 0.7 X10*3/uL (0.1-1.2); Monocytes Percent Auto 9.4 % (2-11); Neutrophils Absolute Auto 4.4 x10*3/uL (2.0-8.3); Neutrophils Percent Auto 58.3 % (45-73); Platelet Count 341 X10*3/uL (160-400); Red Blood Count 3.94 X10*6/uL (4.20-5.50); Red Cell Distribution Width 14.6 % (11.0-16.0); White Blood Count 7.6 X10*3/uL (4.8-10.8)
[2024-07-01 12:11] LABS: Alanine Aminotransferase 30 U/L (0-31); Albumin Level 4.1 g/dL (3.5-5.0); Alkaline Phosphatase 64 U/L (39-117); Anion Gap 13 (12-20); Aspartate Amino Transferase 23 U/L (5-31); Bilirubin Total 0.2 mg/dL (0.0-1.0); Blood Urea Nitrogen 13 mg/dL (9-16); Carbon Dioxide 25 mmol/L (22-29); Chloride 109 mmol/L (96-108); Cholesterol 154 mg/dL (<200); Estimated Glomerular Filt Rate > 60; Glucose Fasting 109 mg/dL (60-99); HDL Cholesterol 51 mg/dL (>40); LDL Cholesterol Calculated 92 mg/dL (<100); Potassium 3.8 mmol/L (3.3-5.1); Sodium 143 mmol/L (135-145); TSH reflex Free T4 4.14 uIU/mL (0.32-4.0); Total Protein 7.2 g/dL (6.5-8.0); Triglycerides 57 mg/dL (<150)
[2024-07-01 12:53] LABS: Free T4 (Free Thyroxine) 0.96 ng/dL (0.71-1.85)
== END 2024-07-01 08:26 | disposition home or self-care (01) ==
LOC: HO.HMGCLDS 08:25
PROVIDERS: PCP Internal Medicine; Visit Provider Internal Medicine
DX: Z00.00 Encounter for general adult medical examination without abnormal findings (principal); K21.9 Gastro-esophageal reflux disease without esophagitis; M65.4 Radial styloid tenosynovitis [de Quervain]; E66.9 Obesity, unspecified; Z68.41 Body mass index [BMI] 40.0-44.9, adult
CPT/HCPCS: 36415; 80053; 80061; 84439; 84443; 85025; 96127; 99395

== ENCOUNTER 2024-07-01 08:25 | Outpatient (AMB) | payer OTHER, SELFPAY ==
[2024-07-01 08:27] VITALS: BP 126/88; PULSE 69; O2SAT 99; BMI 43.4
--- NOTE | 2024-07-01 08:27 | MHC.PC.OV ---
Vital Signs 07/01/24 08:27 Height 5 ft 5 in Weight 261 lb BMI 43.4 BP 126/88 Blood Pressure Location Lt brachial Position Sitting Pulse 69 Pulse Source Pulse Oximeter Pulse Oximetry (%) 99 Oxygen Delivery Method Room Air Intake Visit Reasons: PE (physical exam), annual Intake Note: Pt is here today for PE. Pt states that she has been having headaches. Allergies No Known Allergies Allergy (Verified 07/01/24 08:30) Medication List - Last Reconciled 07/01/24 by Tanya Billy MD albuterol sulfate 90 mcg/actuation 2 puffs inhalation Q6H PRN ibuprofen 600 mg PO Q8H PRN omeprazole 20 mg PO DAILY semaglutide (weight loss) (Wegovy) 0.25 mg (0.5 mL) subcut QWEEK Tobacco use date assessed: 07/01/24 Dental Screening Dental Screen Date: 07/01/24 Did you have a dental visit in the last 12 months?: Yes Did you have a dental problem in the last 6 months where you did not have access to dental care?: No Was dental information given to patient?: Patient has dentist HPI Encounter for annual physical exam HPI Details Pt presents for PE. Pt c/o R wrist pain and swelling for 2 weeks. 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 She denies any injury or joint swelling. Patient has been trying to lose weight decreasing caloric intake increasing physical activity for over 6 months unsuccessfully. She is interested in trying GLP 1 agonist to facilitate weight loss. [facility] Medical History Leg pain, medial Headache Overweight Depression Annual physical exam Asthma Family History Father No problems noted. Mother No problems noted. 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 1. Little interest or pleasure in doing things: several days 2. Feeling down, depressed, or hopeless: not at all 3. Trouble falling or staying asleep, or sleeping too much: more than half the days 4. Feeling tired or having little energy: nearly every day 5. Poor appetite or overeating: several days 6. Feeling bad about yourself - or that you are a failure or have let yourself or your family down: not at all 7. Trouble concentrating on things, such as reading the newspaper or watching television: more than half the days 8. Moving or speaking so slowly that other people could have noticed. Or the opposite - being so fidgety or restless that you have been moving around a lot more than usual: not at all 9. Thoughts that you would be better off or of hurting yourself in some way: not at all Total score: 9 Depression Screening Interpretation: Negative Depression Screening Done: Yes 08864 - PHQ-9 Billing: Yes Source: Developed by Drs. Jean Paul Buckley, Tara Dominguez, Camden Maldonado and colleagues, with an educational katina from [employer]. Thrive Questionnaire Date Thrive assessed: 07/01/24 I am a: Patient What is your living situation today?: I have a steady place to live Within the past 12 months, did the food you bought not last and you didn't have the money to get more?: Never true Within the past 12 months, did you worry whether your food would run out before you got money to buy more?: Never true Do you have trouble paying for medicines?: No Do you have trouble getting transportation to medical appointments?: No Do you have trouble paying your heating and electricity bill?: No Do you have trouble taking care of your child, family member or friend?: No Do you have trouble with day-to-day activities such as bathing, preparing meals, shopping, managing finances, etc.?: No Are you currently unemployed and looking for a job?: Yes Are you interested in more education?: No Please select the resources that you would like help with: None Currently or been in a relationship where the following occur: No concerns reported THRIVE Score: 0 AUDIT C Alcohol Use Questionnaire (AUDIT-C) 1. How often do you have a drink containing alcohol?: 2-3 times a week 2. How many drinks containing alcohol do you have on a typical day when you are drinking?: 1 or 2 3. How often do you have six or more drinks on one occasion?: Monthly Total Score: 5 YASMIN-7 AMB Questionnaire YASMIN-7 Date YASMIN - 7 assessed: 07/01/24 Feeling nervous, anxious, or on edge: 0 = Not at all Not being able to stop or control worryin = Not at all Worrying too much about different things: 2 = More than half the days Trouble relaxin = Not at all Being so restless that it is hard to sit still: 0 = Not at all Becoming easily annoyed or irritable: 2 = More than half the days Feeling afraid as if something awful might happen: 1 = Several days Total YASMIN-7 score (0-4 normal; 5-9 mild; 10-14 moderate; 15-21 severe): 5 Source: Developed by Drs. Jean Paul Buckley, Tara Dominguez, Camden Maldonado and colleagues, with an educational katina from [employer]. YASMIN-7 Assessment Billing YASMIN-7 Assessment Tool: YASMIN-7 Assessment 59100 Review of Systems Const All systems reviewed & are unremarkable except as noted in HPI and below Reports no additional complaints Eyes Reports no additional complaints ENT Reports no additional complaints Card Reports no additional complaints Resp Reports no additional complaints GI Reports no additional complaints Reports no additional complaints Physical exam (Primary Care) Vital Signs: Last Vital Signs Pulse 69 07/01/24 08:27 BP 126/88 07/01/24 08:27 Pulse Ox 99 07/01/24 08:27 Oxygen Delivery Method Room Air 07/01/24 08:27 BMI result Body Mass Index 43.4 Tobacco/Smoking Status: Tobacco use Status Tobacco use date assessed 07/01/24 07/01/24 08:35 Patient Tobacco Use Status Current everyday Tobacco 07/01/24 09:03 e-Cigarette/Vaping Use Never Used 07/01/24 09:03 Depression Screening Interpretation: Negative Thrive Assessment: Date of Thrive Assessment Date Thrive assessed 07/01/24 07/01/24 08:35 Currently or been in a relationship where the following occur: No concerns reported Const General: no acute distress HENMT Head: Yes normal to inspection Ears: hearing grossly normal bilaterally Mouth: Normal oral and palatal mucosa present Throat: Yes posterior oropharynx normal Eyes General: appearance normal, both eyes and all related structures Resp Effort & Inspection: normal respiratory effort Auscultation: clear to auscultation bilaterally Cardio Rhythm: regular rhythm Heart sounds: S1 normal heart sound present and S2 normal heart sound present GI Inspection: Yes normal to inspection Palpation (GI): Soft to palpation Percussion: Yes normal to percussion Auscultation: normal bowel sounds Extrem Other: There is reproducible tenderness at the base of the right thumb no soft tissue swelling erythema or warmth there is slightly decreased range of motion right wrist General: Yes no clubbing, cyanosis or edema Coding Level of Care Code Est Pt Prev Care 18-39y(46710) Diagnoses Annual physical exam Z00.00 GERD (gastroesophageal reflux disease) K21.9 Tendinitis, de Quervain's M65.4 Obesity E66.9 Additional Codes YASMIN-7 Assessment Billing - YASMIN-7 Assessment Tool: YASMIN-7 Assessment 62492 ([id number]) Assessment & Plan Assessment & Plan (1) Annual physical exam: Code(s): Z00.00 - Encounter for general adult medical examination without abnormal findings Category: Medical Plan: Well-balanced diet regular physical activity weight loss discussed with the patient she will have a fasting blood work today (2) GERD (gastroesophageal reflux disease): Code(s): K21.9 - Gastro-esophageal reflux disease without esophagitis Category: Medical Plan: Anti GERD diet discussed with the patient, trial of omeprazole (3) Tendinitis, de Quervain's: Comment: Right wrist Code(s): M65.4 - Radial styloid tenosynovitis [de Quervain] Category: Medical Plan: Meloxicam for 10 days is prescribed patient was advised to wear right wrist brace. she declined physical therapy. (4) Obesity: Comment: BMI 43 Code(s): E66.9 - Obesity, unspecified Category: Medical Plan: DECREASING CALORIC INTAKE INCREASING PHYSICAL ACTIVITY DISCUSSED WITH THE PATIENT. WEGOVY 0.25 WEEKLY WILL BE TRIED FOR THE 1ST MONTH. Side effects discussed with the patient. The dose may be increased after month if patient is interested. Follow-up for weight check with the next 2-3 months Orders: Orders Complete Blood Count Auto Diff Today K21.9 - Gastro-esophageal reflux disease without esophagitis, Z00.00 - Encounter for general adult medical examination without abnormal findings Comprehensive [place]. Panel Fast Today K21.9 - Gastro-esophageal reflux disease without esophagitis, Z00.00 - Encounter for general adult medical examination without abnormal findings TSH reflex Free T4 Today K21.9 - Gastro-esophageal reflux disease without esophagitis, Z00.00 - Encounter for general adult medical examination without abnormal findings Lipid Panel Today K21.9 - Gastro-esophageal reflux disease without esophagitis, Z00.00 - Encounter for general adult medical examination without abnormal findings Medications: New semaglutide (weight loss) (Zain) administer weeks 1 through 4 of therapy 0.25 mg (0.5 mL) subcut QWEEK 2 mL 1RF meloxicam 15 mg PO DAILY 10 tabs 0RF Refilled omeprazole 20 mg PO DAILY 90 caps 1RF Discontinued ibuprofen Discontinued Reason: Doctor's Order 600 mg PO Q8H PRN 20 tabs 0RF fever or pain
== END 2024-07-01 09:10 | disposition home or self-care (01) ==
PROVIDERS: PCP Internal Medicine; Visit Provider Internal Medicine
DX: Z00.00 Encounter for general adult medical examination without abnormal findings (principal); K21.9 Gastro-esophageal reflux disease without esophagitis; E66.9 Obesity, unspecified; Z68.41 Body mass index [BMI] 40.0-44.9, adult; M65.4 Radial styloid tenosynovitis [de Quervain]

== ENCOUNTER 2024-09-26 09:23 | Outpatient (AMB) | payer OTHER, SELFPAY ==
[2024-09-26 09:54] VITALS: BP 110/72; PULSE 80; TEMP 36.8; O2SAT 99; BMI 43.4
--- NOTE | 2024-09-26 09:54 | AM.OFFWIN_ITS ---
Intake Vital Signs 09/26/24 09:54 Height 5 ft 5 in Weight 261 lb BMI 43.4 BP 110/72 Blood Pressure Location Lt brachial Position Sitting Pulse 80 Pulse Source Pulse Oximeter Temp 98.3 F Temp Source Oral Pulse Oximetry (%) 99 Oxygen Delivery Method Room Air Intake Visit Reasons: EP Mouth concerns Intake Note: pt is here for spot pimple like on side cheek and theres swelling. patient noticed it yesterday. Patient Tobacco Use Status: Current everyday Tobacco user Allergies No Known Allergies Allergy (Verified 09/26/24 09:54) Do you need a note to return to daycare/school/sports/work: No HPI EP Mouth concerns HPI Details Pain and swelling on inside of cheek at right lower jaw and teeth. Started a few days ago and is worsening. Denies fevers or chills Denies swallowing difficulty Has not tried any remedies PFSH Medical History Leg pain, medial Headache Overweight Depression Annual physical exam Asthma Family History Father No problems noted. Mother No problems noted. 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 Alcohol intake: current Alcohol intake frequency: a few times a week Patient Tobacco Use Status: Current everyday Tobacco user Cigarettes Per Day: 5 Years Smoked: 4 e-Cigarette/Vaping Use: Never Used service: No Current occupational status: employed Cognitive needs: No Hearing needs: No Vision needs: No Review of Systems Const Details: See HPI Physical Exam Vital Signs: Last Vital Signs Temp 98.3 F 09/26/24 09:54 Pulse 80 09/26/24 09:54 BP 110/72 09/26/24 09:54 Pulse Ox 99 09/26/24 09:54 Oxygen Delivery Method Room Air 09/26/24 09:54 BMI result Body Mass Index 43.4 Const General: no acute distress and well developed Nutritional Appearance: well nourished Orientation/consciousness: patient oriented x3 HEENT Other: Right lower jaw at molars is swollen and infected. Cheek at right lower jaw also swollen. Right anterior cervical chain lymph nodes swollen and tender. Parotid gland nontender Head: Yes normocephalic and Yes atraumatic Eyes General: appearance normal, both eyes and all related structures Pupils: Equal, round and reactive pupils present EOM: EOMs intact bilaterally Resp Effort & Inspection: normal respiratory effort Auscultation: clear to auscultation bilaterally Cardio Rate: regular rate Rhythm: regular rhythm Heart sounds: S1 normal heart sound present, S2 normal heart sound present, no gallops, no murmurs and no rubs Neuro General: patient oriented x3 and gait normal Cranial nerves: Yes Equal, round and reactive pupils present Psych Affect: normal affect Assessment & Plan Assessment & Plan (1) Dental abscess: Code(s): K04.7 - Periapical abscess without sinus Plan: Moderately severe dental abscess at right lower jaw by molars and at cheek. Will give her a script for penicillin VK Advised warm saltwater gargle Advised warm compresses Sleep with had mildly elevated Can use ibuprofen for pain Definitive care is dental intervention and advised her to see her dentist as so on as possible. Call or return to office if worsening or not improving Will give her a script to be out of work for 4 days. Medications: New penicillin V potassium 500 mg PO TID 10 days 30 tabs 0RF Coding Level of Care Code Est Pt Level 3 (51944) Diagnoses Dental abscess K04.7
== END 2024-09-26 11:54 | disposition home or self-care (01) ==
LOC: HO.HMCWIC 09:23
PROVIDERS: PCP Internal Medicine; Visit Provider Family Medicine
DX: K04.7 Periapical abscess without sinus (principal)

== ENCOUNTER → 2024-09-26 09:23 | Outpatient (BNVA) | payer OTHER, SELFPAY | PROVIDERS: PCP Internal Medicine; Visit Provider Family Medicine | DX: K04.7 Periapical abscess without sinus (principal) | CPT/HCPCS: 99212 ==

== ENCOUNTER 2024-10-17 19:59 | Emergency (ER) | payer OTHER, SELFPAY ==
--- NOTE | ~2024-10-17 | XR_ITS ---
CLINICAL HISTORY: fell 3 view left foot Comparison: None Findings: Accessory ossicle medial to the talonavicular articulation. No acute fracture. No dislocation. Please refer to ankle x-rays for distal fibula fracture. Soft tissue swelling present, including proximally and about the ankle. No radiopaque retained foreign body. IMPRESSION: 1. Distal fibula fracture. 2. No dislocation or acute fracture of the left foot. This document has been electronically signed by: Pastor Malloy MD on 10/17/2024 20:53:57
--- NOTE | ~2024-10-17 | XR_ITS ---
CLINICAL HISTORY: pain, injury 2 view left ankle Comparison: None Findings: Acute comminuted intra-articular fracture with mild lateral displacement of the major fracture fragments of the distal fibula including distal most diaphysis, distal metaphysis, and lateral malleolus. [id number] effusion present with superficial soft tissue swelling. No dislocation. No radiopaque retained foreign body. IMPRESSION: 1. Acute comminuted intra-articular distal fibula fracture. 2. No dislocation. This document has been electronically signed by: Pastor Malloy MD on 10/17/2024 20:56:03
--- NOTE | ~2024-10-17 | CT_ITS ---
CLINICAL HISTORY: head strike, pain CT cervical spine without contrast Comparison: None Findings: No acute fracture of the cervical spine. Accessory ossicles of the craniocervical junction and multifocal ligament calcifications. Mild straightening of the cervical lordosis. No significant osseous spinal stenosis by CT. No paraspinal hematoma. Mild motion imaged lung apices. Metal artifacts noted. IMPRESSION: No acute fracture of the cervical spine. This document has been electronically signed by: Pastor Malloy MD on 10/17/2024 21:33:48
--- NOTE | ~2024-10-17 | CT_ITS ---
CLINICAL HISTORY: head strike, pain CT head without contrast Comparison: None Findings: No acute intracranial hemorrhage. No midline shift or hydrocephalus. Cavum septum pellucidum et vergae. No arterial territorial infarction by CT. Dural calcifications present. No acute skull fracture. Retention cysts of the imaged left maxillary sinus measures 1.1 cm. Imaged mastoid air cells are well aerated. IMPRESSION: No acute intracranial abnormality by CT. This document has been electronically signed by: Pastor Malloy MD on 10/17/2024 21:37:53
[2024-10-17 20:04] VITALS: BP 114/82; PULSE 90; RESP 20; TEMP 36.7; O2SAT 98; BMI 37.9
--- NOTE | 2024-10-17 20:04 | ED_ITS ---
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 fell backwards hitting the of main pain left ankle swelling painful to bear weight no loss of consciousness no other significant injuries Related Data Previous Rx's ?Medication ?Instructions ?Recorded albuterol sulfate 90 mcg/actuation 2 puff inhalation Q6H PRN 03/28/21 aerosol inhaler shortness of breath or wheezing #8.5 grams omeprazole 20 mg capsule,delayed 20 mg PO DAILY #90 caps 07/01/24 release tirzepatide (weight loss) 5 mg/0.5 5 mg (0.5 mL) subcut QWEEK #2 mL 09/16/24 mL subcutaneous pen injector (Zepbound) penicillin V potassium 500 mg 500 mg PO TID 10 days #30 tabs 09/26/24 tablet ibuprofen 600 mg tablet 600 mg PO Q6H PRN fever or pain 10/17/24 #30 tabs Allergies Allergy/AdvReac Type Severity Reaction Status Date / Time No Known Allergies Allergy Verified 10/17/24 20:04 Review of Systems Review of Systems: Yes all other systems are reviewed and are negative PMFSH Past Medical History Medical History Leg pain, medial Headache Overweight Depression Annual physical exam Asthma Family History Family History Father No problems noted. Mother No problems noted. 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, Housing: Apartment Alcohol intake: current Alcohol intake frequency: holidays/special occasions only Patient Tobacco Use Status: Current everyday Tobacco user Cigarettes Per Day: 5 Years Smoked: 4 Smoked in Last 30 Days: Yes e-Cigarette/Vaping Use: Never Used Use of substances other than those prescribed or required for medical reasons: No Advance Directives: No Advance Directives Information Provided: No Do you have a plan to hurt others: No Plan Patient : No service: No Current occupational status: employed Cognitive needs: No Hearing needs: No Vision needs: No Physical Exam ED Vital Signs: Vital Signs - 24 hr 10/17/24 20:04 10/17/24 22:09 10/17/24 22:09 Temperature 98.0 F 99.1 F 99.1 F Pulse Rate 90 79 79 Respiratory Rate 20 17 17 Blood Pressure 114/82 117/76 117/76 Pulse Oximetry 98 98 98 Oxygen Delivery Method Room Air Room Air Room Air BMI result Body Mass Index 37.9 Appearance: Alert. Oriented X3. No acute distress. ENT: Pharynx normal. Oral Mucosa moist atraumatic normocephalic Neck: Normal inspection. Neck supple. No midline tenderness CVS: Normal heart rate and rhythm. Pulses normal. Respiratory: No respiratory distress. Equal air entry bilateral, no wheezing/rales/rhonchi Abdomen: Soft and nontender. Bowel sounds are present, no mass palpable, no CVA tenderness Skin: Skin warm and dry. Normal skin color. Normal skin turgor. Extremities: No lower extremity edema. No calf tenderness , tenderness of left lateral malleolus with slight swelling ankle mortise intact neurovascular intact Neuro: Oriented X 3. No motor deficit. Course Course Course Narrative: RME performed by Eva Chaidez PA-C. Patient is a 29 year old assigned female at presenting to the emergency department after a slip and fall. 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 Detailed physical exam and review of systems are deferred to the business intelligence administrator. Imaging ordered. Patient placed back in the waiting room pending room availability and results. Medical Decision Making Medical Decision Making [facility] Narrative: Patient with lower end fibular fracture nondisplaced ortho boot was applied and patient was given crutches advised to rest follow with orthopedic Independent Interpretation I performed an independent interpretation of an: Plain X-Ray Interpretation: Lower end fibular fracture Radiology Impression Discussion of test interpretation with radiology: I have reviewed the radiologist's reading. Discharge Plan Discharge Clinical Impression: Fibula fracture Patient Disposition: Home, Self-Care Instructions: Leg Fracture (ED) Additional Instructions: Wear the walking boot for support Weight-bearing as tolerated use crutches to help in ambulation Fracture should heal in 6-8 weeks Follow with orthopedic Prescriptions: New ibuprofen 600 mg tablet 600 mg PO Q6H PRN (Reason: fever or pain) Qty: 30 0RF No Action Zepbound 5 mg/0.5 mL pen injector 5 mg subcut QWEEK Qty: 2 3RF albuterol sulfate 90 mcg/actuation HFA aerosol inhaler 2 puff inhalation Q6H PRN (Reason: shortness of breath or wheezing) Qty: 8.5 0RF omeprazole 20 mg capsule,delayed release(DR/EC) 20 mg PO DAILY Qty: 90 1RF penicillin V potassium 500 mg tablet 500 mg PO TID 10 Days Qty: 30 0RF Referrals: Cm Anderson MD [Physician] - 2 weeks Stand Alone Forms: Work/School Release Interventions: ED Discharge Assessment Last Done: 10/17/24 22:09 Discharge Date/Time: 10/17/24 22:12 Print Language: Swazi
--- OUTSIDE RECORDS SUMMARY | 2024-10-17 21:44 | XMS_ITS | Clinical Summary ---
Author Organization [facility] Address [address] [place] [address] Care Team Providers Care Applications Programmer Name Role Phone Unavailable Primary Care Provider Unavailabl e Allergies No known active allergies Medications chlorhexidine (Peridex) 0.12 % solution Use 15 mL in the mouth or throat if needed (for mouthwash 15 ml for 30 seconds, swish and spit) for up to 14 days. 473 mL 10/13/19 25 Encounters Date Type Department Care Team Description 09/29/2024 1:00 PM EST Office Visit [facility] [address] [place] [address] Kathleen Spring DDS Periodontal pocket (Primary Dx) from Last 3 Months Social History Tobacco Use Types Packs/Day Years Used Date Smoking Tobacco: Never Smokeless Tobacco: Never Tobacco Cessation:Counseling Given: Not Answered Comments Unknown Sex and Gender Information Value Date Recorded Sex Assigned at Female 07/09/2022 10:37 AM EDT Legal Sex Female 10:37 AM EDT Gender Identity Female 07/09/2022 10:37 AM EDT Sexual Orientation Choose not to disclose 2021 10:37 AM EDT Last Filed Vital Signs Vital Sign Reading Time Taken Comments Blood Pressure 124/78 09/29/2024 1:07 PM EST Pulse 64 10/30/2023 8:01 AM EST Temperature - - Respiratory Rate - - Oxygen Saturation - - Inhaled Oxygen Concentration - - Weight - - Height - - Body Mass Index - - Plan of Treatment Upcoming Encounters Date Type Department Care Team (Late st Contact Info) Description 11/02/2024 1:30 PM EST Office Visit [facility] [address] [place] [address] Librado Petty, DDS [address] [place] [address] Health Maintenance Due Date Last Done Comments Depression Screening 1994 HIV Screening 1994 SDOH Screening 1994 Alcohol/Substance Use Screening 2006 Family Planning (PISQ) 2009 Hepatitis C Screening 2012 DTaP/Tdap/Td Vaccines (1 - Tdap) 2013 Hepatitis B Vaccines (1 of 3 - 19+ 3-dose series) 2013 Pap Smear 2015 Dental X-Ray: Full Mouth 10/26/2023 10/25/2020 Dental Oral Exam 11/04/2023 05/03/2023, , 06/08/2021, Additional history exists Cervical Cancer Screening 2024 HPV/Cotest 2024 Dental Prophylaxis 04/30/2024 10/30/2023, 0 12/06/2021, 06/08/2021 Dental X-Ray: Bitewings 05/04/2024 05/03/20 23, 12/06/2021, 10/25/2020 COVID-19 Vaccine ( - season) 2024 Influenza Vaccine (#1) 2024 Tobacco Screening 09/29/2025 09/29/2024 Zoster Vaccines (1 of 2) 2044 RSV Patients and Patients Aged 60 years or older (1 - 1-dose 75+ series) 2069 HIB Vaccines Aged Out No longer eligi ble based on patient's age to complete this topic HPV Vaccines Aged Out No longer eligi ble based on patient's age to complete this topic Hepatitis A Vaccines Aged Out No long er eligible based on patient's age to complete this topic IPV Vaccines Aged Out No longer eligi ble based on patient's age to complete this topic Meningococcal Vaccine Aged Out No juliana shannon eligible based on patient's age to complete this topic Pneumococcal Vaccine: Pediatrics (0 to 5 Years) and At-Risk Patients (6 to 49) Years) Aged Out No longer eligible based on patient's age to complete this topic RSV under 20 months Aged Out No longe r eligible based on patient's age to complete this topic Rotavirus Vaccines Aged Out No longer eligible based on patient's age to complete this topic Procedures Procedure Name Priority Date/Time Associated Diagnosis Comments ADJUNCTIVE GENERAL SERVICES - PROFESSIONAL VISITS - CASE PRESENTATION, SUBSEQUENT TO DETAILED AND EXTENSIVE TREATMENT PLANNING Routine 09/29/2024 1:00 PM EST Periodontal pocket INTRAORAL - PERIAPICAL FIRST RADIOGRAPHIC IMAGE Routine 09/29/2024 1:00 PM EST Periodontal pocket ADJUNCTIVE GENERAL SERVICES - UNCLASSIFIED TREATMENT - PALLIATIVE TREATMENT OF DENTAL PAIN - PER VISIT Routine 09/29/2024 1:00 PM EST Periodontal pocket PROPHYLAXIS - ADULT Routine 10/30/2023 8 :00 AM EST Dental calculus BITEWINGS - 4 RADIOGRAPHIC IMAGES Routine 05/03/2023 8:00 AM EDT Dental calculus Teeth missing Dental plaque Dental caries Encounter for dental examination PERIODIC ORAL EVALUATION - ESTABLISHED PATIENT Routine 05/03/2023 8:00 AM EDT Dental calculus Teeth missing Dental plaque Dental caries Encounter for dental examination DIAGNOSTIC - DIAGNOSTIC IMAGING - INTRAORAL - COMPREHENSIVE SERIES OF RADIOGRAPHIC IMAGES Routine 10/25/2020 12:00 AM EST from Last 3 Months or Most Recently Relevant to Health Maintenance Insurance [facility] MEDICAID STAND ADULT
--- OUTSIDE RECORDS SUMMARY | 2024-10-17 21:44 | XMS_ITS | Encounter Summary ---
Author Organization [facility] Address [address] [place] [address] Care Team Providers Care Rag Cutting Machine Feeder Name Role Phone Unavailable Primary Care Provider Unavailabl e Encounter Details Date Type Department Care Team (Latest Contact Info) Description 06/08/2021 Abstract [facility] CONVERSIONS Dental, Provider, DDS Social History Tobacco Use Types Packs/Day Years Used Date Smoking Tobacco: Never Assessed Comments Unknown Sex and Gender Information Value Date Recorded Sex Assigned at Female 07/09/2022 10:37 AM EDT Legal Sex Female 10:37 AM EDT Gender Identity Female 07/09/2022 10:37 AM EDT Sexual Orientation Choose not to disclose 2021 10:37 AM EDT documented as of this encounter Plan of Treatment Upcoming Encounters Date Type Department Care Team (Late st Contact Info) Description 11/02/2024 1:30 PM EST Office Visit [facility] ADULT DENTAL [address] [place] [address] Librado Petty DDS [address] [place] [address] documented as of this encounter Visit Diagnoses Not on filedocumented in this encounter
--- OUTSIDE RECORDS SUMMARY | 2024-10-17 21:44 | XMS_ITS | Encounter Summary ---
Author Organization [facility] Address [address] [place] [address] Care Team Providers Care Dispatcher Chief Oil Name Role Phone Unavailable Primary Care Provider Unavailabl e Reason for Visit * Reason Comments Dental Pain Encounter Details Date Type Department Care Team (Late st Contact Info) Description 09/29/2024 1:00 PM EST Office Visit [facility] ADULT DENT[facility] [address] [place] [address] Kathleen Spring DDS [address] [place] [address] Periodontal pocket (Primary Dx) Social History Tobacco Use Types Packs/Day Years Used Date Smoking Tobacco: Never Smokeless Tobacco: Never Comments Unknown Sex and Gender Information Value Date Recorded Sex Assigned at Female 07/09/2022 10:37 AM EDT Legal Sex Female 10:37 AM EDT Gender Identity Female 07/09/2022 10:37 AM EDT Sexual Orientation Choose not to disclose 2021 10:37 AM EDT documented as of this encounter Last Filed Vital Signs Vital Sign Reading Time Taken Comments Blood Pressure 124/78 09/29/2024 1:07 PM EST Pulse - - Temperature - - Respiratory Rate - - Oxygen Saturation - - Inhaled Oxygen Concentration - - Weight - - Height - - Body Mass Index - - documented in this encounter Progress Notes * Kathleen Spring DDS - 09/29/2024 1:00 PM EST Dental procedures in this visit D9110 - ADJUNCTIVE GENERAL SERVICES - UNCLASSIFIED TREATMENT - PALLIATIVE TREATMENT OF DENTAL PAIN - PER VISIT (Completed) Service provider: Kathleen Spring DDS Billing provider: Kathleen Spring DDS [id number] - INTRAORAL - PERIAPICAL FIRST RADIOGRAPHIC IMAGE (Completed) Service provider: Kathleen Spring DDS Billing provider: Kathleen Spring DDS Patient ID: Kathe Weeks is a 29 y.o. female. Time Out: Timeout Date: 09/29/24, Timeout Time: 1307 (Time out for dental emergency) Location: [facility] Tooth: #32 Procedure: Emergency Verified the above with patient, assistant professor of chemistry, and provider. Confirmed via patient's chart, intraorally and by radiographs. Retail And Restaurant: not applicable Chief Complaint Patient presents with Dental Pain Medical Hx: Vitals: Blood pressure 124/78. History reviewed. No pertinent past medical history. Medications: Outpatient Encounter Medications as of 09/29/2024 Medication Sig Dispense Refill chlorhexidine (Peridex) 0.12 % solution Use 15 mL in the mouth or throat if needed (for mouthwash 15 ml for 30 seconds, swish and spit) for up to 14 days. 473 mL 0 No facility-administered encounter medications on file as of 09/29/2024. Subjective: Pain: severe Duration: patient visited the ER on Saturday because of severe pain on LR side. Pt reports having inflammation of the gums in front of the tooth and is intermittently. Objective: Tooth: #32 Radiographs Taken: PA(s) Radiographic Findings: no significant findings observed on tooth ?332. Slight drifted to M. On the clinical exam, large inflammation of remnants of interdental papilla, possible periodontal pocket formed because of angulated posture of tooth #32. Halitosis noticed. Pt currently taking antibiotics, Pt reports pain irradiated to the Side of the neck. Swelling: Tenderness and Intraoral swelling Dr. Petty made a quick consult on the patient today and it was proposed either do a gingivoplasty,but with warning that the pocket may form again due to the angulation of the tooth; or have extraction of the toot h and eliminate the cause of the formation of this periodontal pocket. Pt will decide the day of the extraction, wether to proceed with either tx proposed. Pt to continue medication. Diagnosis: Periodontal pocket Assessment/Plan: Referred with Dr. Petty for extraction Prescriptions: Peridex 15 ml/tid/7 days 473 ml bottle Pt tolerated procedure well, all questions answered. Dismissed in good condition. NV: Ext or gingivoplasty- Dr. Petty Md Ophthalmologist: Liza Diego Dentist: Kathleen pSring DDS documented in this encounter Plan of Treatment Upcoming Encounters Date Type Department Care Team (Late st Contact Info) Description 11/02/2024 1:30 PM EST Office Visit [facility] D[facility] [address] [place], [place] [id number] Librado Petty DDS [address], [place] [phone] Scheduled Orders Name Type Priority Associated Diagnoses Orde r Schedule 32 32 EXTRACTION, ERUPTED TOOTH OR EXPOSED ROOT (ELEVATION AND/OR FORCEPS REMOVAL) Dental Routine 1 Occurrences s tarting 09/29/2024 documented as of this encounter Procedures Procedure Name Priority Date/Time Associated Diagnosis Comments ADJUNCTIVE GENERAL SERVICES - UNCLASSIFIED TREATMENT - PALLIATIVE TREATMENT OF DENTAL PAIN - PER VISIT Routine 09/29/2024 1:00 PM EST Periodontal pocket INTRAORAL - PERIAPICAL FIRST RADIOGRAPHIC IMAGE Routine 09/29/2024 1:00 PM EST Periodontal pocket ADJUNCTIVE GENERAL SERVICES - PROFESSIONAL VISITS - CASE PRESENTATION, SUBSEQUENT TO DETAILED AND EXTENSIVE TREATMENT PLANNING Routine 09/29/2024 1:00 PM EST Periodontal pocket documented in this encounter Visit Diagnoses Diagnosis Periodontal pocket- Primary Other specified periodontal diseases documented in this encounter
[2024-10-17 22:09] VITALS: BP 117/76; PULSE 79; RESP 17; TEMP 37.3; O2SAT 98
== END 2024-10-17 22:12 | disposition home or self-care (01) ==
PROVIDERS: Emergency Provider Internal Medicine; PCP Internal Medicine
DX: S82.832A Other fracture of upper and lower end of left fibula, initial encounter for closed fracture (principal); W00.0XXA Fall on same level due to ice and snow, initial encounter; Y93.89 Activity, other specified; Y92.480 Sidewalk as the place of occurrence of the external cause; Y99.0 Civilian activity done for income or pay
CPT/HCPCS: 70450; 72125; 73610; 73630; 99284

== ENCOUNTER → 2024-10-17 20:08 | Outpatient (BNV) | payer OTHER, SELFPAY | PROVIDERS: PCP Internal Medicine; Visit Provider Radiology Neuroradiology | DX: S09.90XA Unspecified injury of head, initial encounter (principal); M25.572 Pain in left ankle and joints of left foot | CPT/HCPCS: 70450; 72125; 73610; 73630 ==

== ENCOUNTER 2024-10-30 08:12 | Outpatient (AMB) | payer OTHER, SELFPAY ==
--- OUTSIDE RECORDS SUMMARY | 2024-10-30 08:15 | XMS_ITS | Encounter Summary ---
Author Organization [facility] Address [address] [place] [address] Care Team Providers Care Inclusion Specialist Name Role Phone Unavailable Primary Care Provider Unavailabl e Encounter Details Date Type Department Care Team (Latest Contact Info) Description 06/08/2021 Abstract [facility] CONVERSIONS Dental, Provider, DDS Social History Tobacco [...] Description 11/02/2024 1:30 PM EST Office Visit [facility] ADULT DENTAL [address] [place] [address] Librado Petty DDS [address] [place] [address] documented as of this encounter Visit Diagnoses Not on filedocumented in this encounter
--- OUTSIDE RECORDS SUMMARY | 2024-10-30 08:15 | XMS_ITS | Clinical Summary ---
Author Organization [facility] Address [address] [place] [address] Care Team Providers Care Irrigation Engineer Name Role Phone Unavailable Primary Care Provider Unavailabl e Allergies No known active allergies Medications chlorhexidine (Peridex) 0.12 % solution Use 15 mL in the mouth or throat if needed (for mouthwash 15 ml for 30 seconds, swish and spit) for up to 14 days. 473 mL 10/13/19 25 Encounters Date Type Department Care Team Description 09/29/2024 1:00 PM EST Office Visit [facility] ADULT DENTAL [address] [place] [address] Kathleen Spring DDS Periodontal pocket (Primary Dx) [...] Description 11/02/2024 1:30 PM EST Office Visit [facility] ADULT DENTAL [address] [place] [address] Librado Petty, DDS [address] [place] [address] Health Maintenance Due Date Last Done Comments [...] Procedure Name Priority Date/Time Associated Diagnosis Comments CASE PRESENTATION, DETAILED AND EXTENSIVE TREATMENT PLANNING Routine 09/29/2024 1:00 PM EST Periodontal pocket INTRAORAL - PERIAPICAL FIRST RADIOGRAPHIC IMAGE Routine 09/29/2024 1:00 PM EST Periodontal pocket PALLIATIVE (EMERGENCY) TREATMENT OF DENTAL PAIN - MINOR PROCEDURE Routine 09/29/2024 1:00 PM EST Periodontal pocket PROPHYLAXIS - ADULT Routine 10/30/2023 8 :00 AM EST Dental calculus BITEWINGS - 4 RADIOGRAPHIC IMAGES Routine 05/03/2023 8:00 AM EDT Dental calculus Teeth missing Dental plaque Dental caries Encounter for dental examination PERIODIC ORAL EVALUATION - ESTABLISHED PATIENT Routine 05/03/2023 8:00 AM EDT Dental calculus Teeth missing Dental plaque Dental caries Encounter for dental examination INTRAORAL - COMPLETE SERIES OF RADIOGRAPHIC IMAGES Routine 10/25/2020 12:00 AM EST from Last 3 Months or Most Recently Relevant to Health Maintenance Insurance [facility] MEDICAID STAND ADULT
--- NOTE | 2024-10-30 08:21 | MHC.OFFVIS ---
Vital Signs 10/30/24 08:27 Height 5 ft 6 in Weight 234 lb BMI 37.8 Handedness Right Intake Visit Reasons: FC - LT ankle fx, DOI? Intake Note: Kathe is a 29 year old female who presents today with tall walking boot and her for a evaluation of her left ankle injury, DOI 10/17/24. 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 She fell backwards hitting the left ankle swelling painful to bear weight. She states that she has a itching sensation around her ankle. Patient is having a lot of pain on the lateral aspect of the ankle. She has tried and failed taking Ibuprofen. Stacking Machine Operator Required: Yes Stacking Machine Operator Language: Batt Machine Operator Services: Stacking Machine Operator Offered & Declined () Allergies No Known Allergies Allergy (Verified 10/30/24 08:26) HPI HPI FC - LT ankle fx, DOI?: Details: Ms. Micky Cardozo is a 29-year-old female who presents to the office today with her for evaluation of a left ankle injury, DOI 10/17/24. She presents to to the office in a short walking boot and a knee scooter. 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 She fell backwards hitting the left ankle. She developed immediate swelling and the ankle was too painful to bear weight. Patient is having a lot of pain on the lateral aspect of the ankle. [facility] Medical History Leg pain, medial Headache Overweight Depression Annual physical exam Asthma Family History Father No problems noted. Mother No problems noted. 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 Alcohol intake: current Alcohol intake frequency: holidays/special occasions only Patient Tobacco Use Status: Current everyday Tobacco user Cigarettes Per Day: 5 Years Smoked: 4 e-Cigarette/Vaping Use: Never Used service: No Current occupational status: employed Current occupation: [employer] Cognitive needs: No Hearing needs: No Vision needs: No Review of Systems Const All systems reviewed & are unremarkable except as noted in HPI and below Physical Exam Vital Signs: BMI result Body Mass Index 37.8 Const General: cooperative, healthy appearing and no acute distress Resp Effort & Inspection: normal respiratory effort and able to speak in complete sentences Cardio Rate: regular rate Peripheral pulses: Peripheral pulses 2+ throughout Skin Lesions: no lesions Rashes: no rashes Extrem Other: Left ankle: Twso-vc-nsmfztgi edema located along the lateral malleolus. Accompanied by extreme pain to touch of the lateral malleolus. No tenderness to palpation medial malleolus. No tenderness over the deltoid. Able to move all digits. Sensation is intact. Pedal pulse intact. Office Procedures AMB Fracture Care Fracture Billing Code: Fracture Billing Code Casting/Splints 75915-Ypkhd Leg Cast Application Procedure code (CPT) selection complete Assessment & Plan Assessment & Plan (1) Closed fracture of left distal fibula: Code(s): S82.832A - Other fracture of upper and lower end of left fibula, initial encounter for closed fracture Category: Medical Plan Ms. Micky Cardozo is a 29-year-old female who presents to the office today with her for evaluation of a left ankle injury, DOI 10/17/24. She presents to to the office in a short walking boot and a knee scooter. 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 She fell backwards hitting the left ankle. She developed immediate swelling and the ankle was too painful to bear weight. Patient is having a lot of pain on the lateral aspect of the ankle. While in the office today, we did discuss the role of transitioning the patient into a tall walking boot and she may begin to weightbear as tolerated. However, the patient is extremely nervous about weight-bearing and would like to be transitioned to a cast at this time to allow for decreased swelling and pain. The patient will be placed into a short-leg custom molded cast and remain nonweightbearing. I would like to see her back in 2 weeks with cast off and repeat x-rays, sooner if needed. X-rays of the left ankle which were obtained while in the office today and were reviewed by me, Ileana Marino PA-C, revealed left distal fibular fracture. Ankle mortise appears to be intact. Orders: Orders XR ankle LT min 3V Today M25.579 - Pain in unspecified ankle and joints of unspecified foot Coding Level of Care Code New Pt Level 4 (36392) Diagnoses Closed fracture of left distal fibula S82.832A CPT Codes Fracture Care - Fracture Billing Code: Fracture Billing Code ([id number]) Casting - CPT: 51472-Zuydn Leg Cast Application ([id number])
[2024-10-30 08:27] VITALS: BMI 37.8
== END 2024-10-30 09:44 | disposition home or self-care (01) ==
PROVIDERS: PCP Internal Medicine; Visit Provider Physician Assistant
DX: S82.892A Other fracture of left lower leg, initial encounter for closed fracture (principal)
CPT/HCPCS: 27786; 99203

== ENCOUNTER → 2024-10-30 08:13 | Outpatient (BNV) | payer OTHER, SELFPAY | PROVIDERS: Visit Provider Radiology Diagnostic Radiology | DX: M25.572 Pain in left ankle and joints of left foot (principal) | CPT/HCPCS: 73610 ==

== ENCOUNTER 2024-10-30 09:25 | Outpatient (REF) | payer OTHER, SELFPAY ==
--- NOTE | ~2024-10-30 | XR_ITS ---
EXAMINATION: XR ANKLE, LEFT CLINICAL INFORMATION: M25.579 - Pain in unspecified ankle and joints of unspecified foot COMPARISON: 10/17/2024. TECHNIQUE: AP, lateral, and mortise views of the left ankle. FINDINGS: Oblique fracture distal fibular metaphysis again noted, unchanged in alignment. Fracture lines are well defined without definite sclerosis or bridging callus. Alignment is anatomic/near-anatomic. No additional fracture evident. Ankle mortise is intact. The talar dome is normal. The subtalar joints and calcaneus appear normal. Normal plantar arch. Mild soft tissue swelling anterolaterally, improved. XR/XR ankle LT min 3V IMPRESSION: 1. Redemonstration of oblique fibular metadiaphyseal fracture without change in near anatomic alignment. No gross healing at this time. 2. Intact mortise and talar dome. 3. Improving soft tissue swelling Electronically signed by: Juan Luis Koroma MD 10/30/2024 10:20 AM DARRON
--- OUTSIDE RECORDS SUMMARY | 2024-11-03 10:28 | XMS_ITS | Encounter Summary ---
Author Organization [employer] [facility] Address [address] [place] [address] Care Team Providers Care Endocrinologist Name Role Phone Unavailable Primary Care Provider Unavailabl e Encounter Details Date Type Department Care Team (Latest Contact Info) Description 06/08/2021 Abstract [facility] CONVERSIONS Dental, Provider, DDS Social History [...] Care Team (Late st Contact Info) Description 12/07/2024 10:30 AM EDT Office Visit [facility] ADULT DENTAL [address] [place] [address] Librado Petty DDS [address] [place] [address] documented as of this encounter Visit Diagnoses Not on filedocumented in this encounter
--- OUTSIDE RECORDS SUMMARY | 2024-11-03 10:28 | XMS_ITS | Clinical Summary ---
Author Organization [employer] [facility] Address [address] [place] [address] Care Team Providers Care Building Materials Sales Attendant Name Role Phone Unavailable Primary Care Provider Unavailabl e Allergies No known active allergies Medications chlorhexidine (Peridex) 0.12 % solution Use 15 mL in the mouth or throat if needed (for mouthwash 15 ml for 30 seconds, swish and spit) for up to 14 days. 473 mL 10/13/19 25 Encounters Date Type Department Care Team Description 09/29/2024 1:00 PM EST Office Visit [facility] ADULT DENTAL [address] [place] [address] Kathleen Spring DDS Periodontal pocket (Primary Dx) [...] Description 12/07/2024 10:30 AM EDT Office Visit [facility] ADULT DENTAL [address] [place] [address] Librado Petty, DDS [address] [place] [address] Health Maintenance Due Date Last Done Comments [...] Most Recently Relevant to Health Maintenance Insurance DENTAL-[facility] MEDICAID STAND ADULT
== END 2024-10-30 09:26 | disposition home or self-care (01) ==
LOC: HO.HOSX 09:25
PROVIDERS: Visit Provider Physician Assistant
DX: M25.572 Pain in left ankle and joints of left foot (principal); S82.832A Other fracture of upper and lower end of left fibula, initial encounter for closed fracture
CPT/HCPCS: 27786; 73610; 99202

== ENCOUNTER 2024-11-09 13:00 | Outpatient (REF) | payer OTHER, SELFPAY ==
--- OUTSIDE RECORDS SUMMARY | 2024-11-09 15:38 | XMS_ITS | Clinical Summary ---
Author Organization [employer] [facility] Address [address] [place] [address] Care Team Providers Care Methods Study Analyst Name Role Phone Unavailable Primary Care Provider Unavailabl e Allergies No known active allergies Medications chlorhexidine (Peridex) 0.12 % solution Use 15 mL in the mouth or throat if needed (for mouthwash 15 ml for 30 seconds, swish and spit) for up to 14 days. 473 mL 10/13/19 25 Encounters Date Type Department Care Team Description 09/29/2024 1:00 PM EST Office Visit [facility] ADULT DENTAL [address] [place] [address] Kathleen Spring DDS Periodontal pocket (Primary Dx) [...] Description 12/07/2024 10:30 AM EDT Office Visit [facility] ADULT DENTAL [address] [place] [address] Librado Petty, DDS [address] [place] [address] Health Maintenance Due Date Last Done Comments [...] Most Recently Relevant to Health Maintenance Insurance DENTAL-[facility] MEDICAID STAND ADULT
--- OUTSIDE RECORDS SUMMARY | 2024-11-09 15:38 | XMS_ITS | Encounter Summary ---
Author Organization [employer] [facility] Address [address] [place] [address] Care Team Providers Care Printer Machine Name Role Phone Unavailable Primary Care Provider Unavailabl e Encounter Details Date Type Department Care Team (Latest Contact Info) Description 06/08/2021 Abstract [facility] CONVERSIONS Dental, Provider, DDS Social History [...] Description 12/07/2024 10:30 AM EDT Office Visit [facility] ADULT DENTAL [address] [place] [address] Librado Petty DDS [address] [place] [address] documented as of this encounter Visit Diagnoses Not on filedocumented in this encounter
== END 2024-11-09 13:01 | disposition home or self-care (01) ==
LOC: HO.HOSX 13:00
PROVIDERS: Visit Provider Physician Assistant
DX: M25.572 Pain in left ankle and joints of left foot (principal); S82.832A Other fracture of upper and lower end of left fibula, initial encounter for closed fracture
CPT/HCPCS: 99212

== ENCOUNTER 2024-11-09 13:00 | Outpatient (AMB) | payer OTHER, SELFPAY ==
--- NOTE | 2024-11-09 13:03 | MHC.OFFVIS ---
Vital Signs 11/09/24 13:22 Height 5 ft 6 in Weight 234 lb BMI 37.8 Intake Visit Reasons: OV- LT ankle fx DOI 10/17/24-Cast change Intake Note: Kathe is a 29 year old female who presents today with her for a cast change of her left ankle fx, DOI 10/17/24. Patient states that she got her cast wet when she was taking a shower. Vending Machine Coin Collector Required: Yes Vending Machine Coin Collector Language: Sound Assistant Services: Vending Machine Coin Collector Offered & Declined () Allergies No Known Allergies Allergy (Verified 11/09/24 13:19) HPI HPI OV- LT ankle fx DOI 10/17/24-Cast change: Details: Patient presents to the office today for left ankle fracture date of injury 10/17/2024. She has been seen by Ileana Marino in the office and was placed in a cast nonweightbearing today she has a follow-up for 11/12/2024 over she got her cast wet and comes in today for a cast change. [facility] Medical History Leg pain, medial Headache Overweight Depression Annual physical exam Asthma Family History Father No problems noted. Mother No problems noted. 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 Alcohol intake: current Alcohol intake frequency: holidays/special occasions only Patient Tobacco Use Status: Current everyday Tobacco user Cigarettes Per Day: 5 Years Smoked: 4 e-Cigarette/Vaping Use: Never Used service: No Current occupational status: employed Current occupation: [email or web address] w[employer] Cognitive needs: No Hearing needs: No Vision needs: No Review of Systems Const All systems reviewed & are unremarkable except as noted in HPI and below Physical Exam Vital Signs: BMI result Body Mass Index 37.8 Const General: cooperative, healthy appearing and no acute distress Resp Effort & Inspection: normal respiratory effort and able to speak in complete sentences Cardio Rate: regular rate Peripheral pulses: Peripheral pulses 2+ throughout Skin Lesions: no lesions Rashes: no rashes Extrem Other: Left ankle: Ymng-xa-gimqipgd edema located along the lateral malleolus. Accompanied by extreme pain to touch of the lateral malleolus. No tenderness to palpation medial malleolus. No tenderness over the deltoid. Able to move all digits. Sensation is intact. Pedal pulse intact. Results Reviewed Results Reviewed: X-rays of the left ankle obtained in the office today show posterior malleolus fracture without any significance of callus formation Assessment & Plan Assessment & Plan (1) Closed fracture of left distal fibula: Code(s): S82.832A - Other fracture of upper and lower end of left fibula, initial encounter for closed fracture Category: Medical Plan: Patient was placed in a short-leg cast today. She will remain nonweightbearing. Given it has been 2 weeks and there is no sign of callus formation I feel as though she should be placed in a cast for another 4 weeks to ensure proper healing and stability. Patient did inquire about a boot and I deferred on this as I do not feel she will get adequate stability. She will see us back in 4 weeks with cast off and x-rays with Ileana Marino sooner if needed. Orders: Orders XR ankle LT min 3V Today M25.572 - Pain in left ankle and joints of left foot Coding Level of Care Code Global (88835) Diagnoses Closed fracture of left distal fibula S82.832A
[2024-11-09 13:22] VITALS: BMI 37.8
--- OUTSIDE RECORDS SUMMARY | 2024-11-09 15:14 | XMS_ITS | Encounter Summary ---
Author Organization [employer] [facility] Address [address] [place] [address] Care Team Providers Care Industrial Sales Engineer Name Role Phone Unavailable Primary Care Provider Unavailabl e Encounter Details Date Type Department Care Team (Latest Contact Info) Description 06/08/2021 Abstract [facility] CONVERSIONS Dental, Provider, DDS Social History [...] Description 12/07/2024 10:30 AM EDT Office Visit [facility] ADULT DENTAL [address] [place] [address] Librado Petty DDS [address] [place] [address] documented as of this encounter Visit Diagnoses Not on filedocumented in this encounter
--- OUTSIDE RECORDS SUMMARY | 2024-11-09 15:14 | XMS_ITS | Clinical Summary ---
Author Organization [facility] Address [address] [place] [address] Care Team Providers Care Powder And Primer Canning Leader Name Role Phone Unavailable Primary Care Provider Unavailabl e Allergies No known active allergies Medications chlorhexidine (Peridex) 0.12 % solution Use 15 mL in the mouth or throat if needed (for mouthwash 15 ml for 30 seconds, swish and spit) for up to 14 days. 473 mL 10/13/19 25 Encounters Date Type Department Care Team Description 09/29/2024 1:00 PM EST Office Visit [facility] ADULT DENTAL [address] [place] [address] Kathleen Spring DDS Periodontal pocket (Primary Dx) [...] Description 12/07/2024 10:30 AM EDT Office Visit [facility] ADULT DENTAL [address] [place] [address] Librado Petty, DDS [address] [place] [address] Health Maintenance Due Date Last Done Comments [...] Most Recently Relevant to Health Maintenance Insurance DENTAL-[facility] MEDICAID STAND ADULT
== END 2024-11-09 14:14 | disposition home or self-care (01) ==
PROVIDERS: Visit Provider Physician Assistant
DX: S82.832A Other fracture of upper and lower end of left fibula, initial encounter for closed fracture (principal)
CPT/HCPCS: 99024

== ENCOUNTER → 2024-11-09 13:31 | Outpatient (BNV) | payer OTHER, SELFPAY | PROVIDERS: Visit Provider Radiology Diagnostic Radiology | DX: M25.572 Pain in left ankle and joints of left foot (principal) | CPT/HCPCS: 73610 ==

== ENCOUNTER 2024-11-12 10:42 | Outpatient (REF) | payer OTHER, SELFPAY ==
--- NOTE | ~2024-11-12 | XR_ITS ---
EXAMINATION: XR ANKLE, LEFT CLINICAL INFORMATION: M25.572 - Pain in left ankle and joints of left foot COMPARISON: None available. TECHNIQUE: AP, lateral, and mortise views of the left ankle. FINDINGS: There is an oblique fracture distal fibula without significant displacement. No additional fractures seen. Ankle mortise and subtalar joints are normal. The soft tissues are normal. XR/XR ankle LT min 3V IMPRESSION: Oblique fracture distal fibula. No visible acute fracture or dislocation seen. Electronically signed by: Frank Peacock MD 11/10/2024 09:34 AM EST
--- OUTSIDE RECORDS SUMMARY | 2024-11-13 12:12 | XMS_ITS | Encounter Summary ---
Author Organization [employer] [facility] Address [address] [place] [address] Care Team Providers Care Network Security Officer Name Role Phone Unavailable Primary Care Provider Unavailabl e Encounter Details Date Type Department Care Team (Latest Contact Info) Description 06/08/2021 Abstract [facility] CONVERSIONS Dental, Provider, DDS Social History [...] Description 12/07/2024 10:30 AM EDT Office Visit [facility] ADULT DENTAL [address] [place] [address] Librado Petty DDS [address] [place] [address] documented as of this encounter Visit Diagnoses Not on filedocumented in this encounter
--- OUTSIDE RECORDS SUMMARY | 2024-11-13 12:12 | XMS_ITS | Clinical Summary ---
Author Organization [facility] Address [address] [place] [address] Care Team Providers Care Enamel Drier Name Role Phone Unavailable Primary Care Provider Unavailabl e Allergies No known active allergies Medications No known medications Encounters Date Type Department Care Team Description 09/29/2024 1:00 PM EST Office Visit [facility] ADULT DENTAL [address] [place] [address] Kathleen Spring DDS Periodontal pocket (Primary Dx) [...] Office Visit [facility] ADULT DENTAL [address] [place], [place] [phone] Librado Petty DDS [address] [place], [place] [phone] Health Maintenance Due Date Last Done Comments [...] Most Recently Relevant to Health Maintenance Insurance [facility] MEDICAID STAND ADULT
== END 2024-11-12 10:43 | disposition home or self-care (01) ==
LOC: HO.HOSX 10:42
PROVIDERS: Visit Provider Physician Assistant
DX: M25.572 Pain in left ankle and joints of left foot (principal)
CPT/HCPCS: 73610

== ENCOUNTER 2024-12-10 08:25 | Outpatient (REF) | payer OTHER, SELFPAY ==
--- NOTE | ~2024-12-10 | XR_ITS ---
EXAMINATION: XR ANKLE 3 OR MORE VIEWS LEFT HISTORY: M25.579 - Pain in unspecified ankle and joints of unspecified foot COMPARISON: Comparison is made with the prior examination dated 11/09/2024. FINDINGS: Three views of the left ankle are submitted. Osseous mineralization is normal. Again seen is a nondisplaced fracture of the distal fibula. The fracture line remains visible. The joint spaces are preserved. The soft tissues are unremarkable. XR/XR ankle LT min 3V IMPRESSION: Nondisplaced fracture of the distal fibula without significant change. Electronically signed by: Jean Paul Pate MD 12/11/2024 01:20 PM EDT
--- OUTSIDE RECORDS SUMMARY | 2024-12-11 08:49 | XMS_ITS | Encounter Summary ---
Author Organization [employer] [facility] [place] Address [address] [place] [address] Care Team Providers Care Train Control Technician Name Role Phone Unavailable Primary Care Provider Unavailabl e Encounter Details Date Type Department Care Team (Latest Contact Info) Description 06/08/2021 Abstract [facility] CONVERSIONS Dental, Provider, DDS Social History [...]
--- OUTSIDE RECORDS SUMMARY | 2024-12-11 08:49 | XMS_ITS | Clinical Summary ---
Author Organization [employer] Address [address] [place] [address] Care Team Providers Care Stone Banker Name Role Phone Unavailable Primary Care Provider Unavailabl e Allergies No known active allergies Medications No known medications Encounters Date Type Department Care Team Description 09/29/2024 1:00 PM EST Office Visit [facility] ADULT DENTAL [address] [place] [address] Cox-Godfrey, Kathleen, DDS Periodontal pocket (Primary Dx) [...]
== END 2024-12-10 08:26 | disposition home or self-care (01) ==
LOC: HO.HOSX 08:25
PROVIDERS: Visit Provider Physician Assistant
DX: S82.832A Other fracture of upper and lower end of left fibula, initial encounter for closed fracture (principal)
CPT/HCPCS: 73610; 99212

== ENCOUNTER 2024-12-10 14:46 | Outpatient (AMB) | payer OTHER, SELFPAY ==
--- NOTE | 2024-12-10 15:12 | A.OFFVIS_ITS ---
Intake Visit Reasons: OV- LT ankle fx DOI 10/17/24 Intake Note: Kathe is a 29 year old female who presents today with her for a cast change of her left ankle fx, DOI 10/17/24. Patient states that she is feeling better and she is doing well. Leak Inspector Required: Yes Leak Inspector Language: Security Program Manager Services: Leak Inspector Offered & Declined () Allergies No Known Allergies Allergy (Verified 12/10/24 15:47) HPI HPI OV- LT ankle fx DOI 10/17/24: Details: Patient presents the office today for routine follow-up status post left distal fibular fracture that she sustained on 10/17/2024. Cast was removed on the office today for repeat x-rays to be obtained. Patient reports that overall she is doing very well. She has been using a knee scooter to assist with ambulation and has been nonweightbearing as instructed. [facility] Medical History Leg pain, medial Headache Overweight Depression Annual physical exam Asthma Family History Father No problems noted. Mother No problems noted. 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 Alcohol intake: current Alcohol intake frequency: holidays/special occasions only Patient Tobacco Use Status: Current everyday Tobacco user Cigarettes Per Day: 5 Years Smoked: 4 e-Cigarette/Vaping Use: Never Used service: No Current occupational status: employed Current occupation: [employer] w/[employer] Cognitive needs: No Hearing needs: No Vision needs: No Review of Systems Const All systems reviewed & are unremarkable except as noted in HPI and below Physical Exam Const General: cooperative, healthy appearing and no acute distress Resp Effort & Inspection: normal respiratory effort and able to speak in complete sentences Cardio Rate: regular rate Peripheral pulses: Peripheral pulses 2+ throughout Skin Lesions: no lesions Rashes: no rashes Extrem Other: Left ankle: Lzno-uk-biiopdtq edema located along the lateral malleolus. Tenderness to palpation of the lateral malleolus. No tenderness to palpation medial malleolus. No tenderness over the deltoid. Able to move all digits. Sensation is intact. Pedal pulse intact. Assessment & Plan Assessment & Plan (1) Closed fracture of left distal fibula: Code(s): S82.832A - Other fracture of upper and lower end of left fibula, initial encounter for closed fracture Category: Medical Plan One the office today, the patient was transition to a tall walking boot. She may begin to weight bear as tolerated. I have also placed order for physical therapy to begin working on gentle range of motion and gait training in the boot. The goal was to wean her out of the boot in the next 4 weeks into a supportive walking shoe. I provided her with an out of work note until follow- up appointment. Follow-up in 6 weeks with repeat x-rays, sooner if needed. X-rays of the left ankle which were obtained while in the office today and were reviewed by me, Ileana Marino PA-C, revealed routine healing distal fibular fracture. Orders: Orders XR ankle LT min 3V Today M25.579 - Pain in unspecified ankle and joints of unspecified foot Coding Level of Care Code Est Pt Level 3 (83742) Diagnoses Closed fracture of left distal fibula S82.832A
--- OUTSIDE RECORDS SUMMARY | 2024-12-10 16:15 | XMS_ITS | Clinical Summary ---
Author Organization [employer] Address [address] [place] [address] Care Team Providers Care Vehicle And Equipment Cleaner Name Role Phone Unavailable Primary Care Provider Unavailabl e Allergies No known active allergies Medications No known medications Encounters Date Type Department Care Team Description 09/29/2024 1:00 PM EST Office Visit [facility] ADULT DENTAL [address] [place] [address] Cox-Godfrey, Kathleen, DDS Periodontal pocket (Primary Dx) from Last [...] Mass Index - - Plan of Treatment Health Maintenance Due Date Last Done Comments [...] 05/03/20 23, 12/06/2021, 10/25/2020 COVID-19 Vaccine ( season) 2024 Influenza Vaccine (#1) 2024 Tobacco [...] Most Recently Relevant to Health Maintenance Insurance DENTAL-[facility] MEDICAID STAND ADULT
--- OUTSIDE RECORDS SUMMARY | 2024-12-10 16:15 | XMS_ITS | Encounter Summary ---
Author Organization [email or web address] [facility] Address [address] [place] [address] Care Team Providers Care Acoustic Warfare Analyst Name Role Phone Unavailable Primary Care Provider Unavailabl e Encounter Details Date Type Department Care Team (Latest Contact Info) Description 06/08/2021 Abstract [facility] CONVERSIONS Dental, Provider, DDS Social History Tobacco [...] as of this encounter Plan of Treatment Not on file documented as of this encounter Visit Diagnoses Not on filedocumented in this encounter
== END 2024-12-10 15:47 | disposition home or self-care (01) ==
LOC: HO.HOS 14:47
PROVIDERS: Visit Provider Physician Assistant
DX: S82.892A Other fracture of left lower leg, initial encounter for closed fracture (principal)
CPT/HCPCS: 99024

== ENCOUNTER → 2024-12-10 14:48 | Outpatient (BNV) | payer OTHER, SELFPAY | PROVIDERS: Visit Provider Radiology Diagnostic Radiology | DX: S82.832A Other fracture of upper and lower end of left fibula, initial encounter for closed fracture (principal) | CPT/HCPCS: 73610 ==

== ENCOUNTER → 2025-01-12 10:50 | Outpatient (BNVA) | payer OTHER, SELFPAY | PROVIDERS: PCP Internal Medicine; Visit Provider Internal Medicine | DX: Z13.89 Encounter for screening for other disorder (principal) ==

== ENCOUNTER 2025-01-21 08:52 | Outpatient (AMB) | payer OTHER, SELFPAY ==
--- NOTE | 2025-01-21 09:15 | MHC.OFFVIS ---
Vital Signs 01/21/25 09:20 Height 5 ft 6 in Weight 233 lb BMI 37.6 Intake Visit Reasons: OV- LT ankle fx DOI 10/17/24 Intake Note: Kathe is a 29 year old female who presents today with her for a follow up of her left ankle fx, DOI 10/17/24. At her last visit she was referred to physical therapy to begin working on gentle range of motion and gait training in the boot. The goal is to wean her out of the boot and move to a supportive shoe. Patient states she is doing well, however she tends to have pain and discomfort when she is over doing it. Allergies No Known Allergies Allergy (Verified 01/21/25 09:20) HPI HPI OV- LT ankle fx DOI 10/17/24: Details: Ms. Micky Cardozo is a 29 year old female who presents today with her for routine follow up of left ankle fx, DOI 10/17/24. At her last visit she was referred to physical therapy to begin working on gentle range of motion and gait training in the boot. The goal is to wean her out of the boot and move to a supportive shoe. She presents to the office today in a supportive sneaker. Overall, the patient is doing very well but has some lingering stiffness and weakness. Patient does report some discomfort when ambulating for long periods of time. 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 [facility] Medical History Leg pain, medial Headache Overweight Depression Annual physical exam Asthma Family History Father No problems noted. Mother No problems noted. 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 Alcohol intake: current Alcohol intake frequency: holidays/special occasions only Patient Tobacco Use Status: Current everyday Tobacco user Cigarettes Per Day: 5 Years Smoked: 4 e-Cigarette/Vaping Use: Never Used service: No Current occupational status: employed Current occupation: [employer] [place] w/[employer] Cognitive needs: No Hearing needs: No Vision needs: No Review of Systems Const All systems reviewed & are unremarkable except as noted in HPI and below Physical Exam Vital Signs: BMI result Body Mass Index 37.6 Const General: cooperative, healthy appearing and no acute distress Resp Effort & Inspection: normal respiratory effort and able to speak in complete sentences Cardio Rate: regular rate Peripheral pulses: Peripheral pulses 2+ throughout Skin Lesions: no lesions Rashes: no rashes Extrem Other: Left ankle: Able to perform dorsiflexion, plantar flexion, inversion and eversion with mild stiffness and discomfort. NVI. Assessment & Plan Assessment & Plan (1) Closed fracture of left distal fibula: Code(s): S82.832A - Other fracture of upper and lower end of left fibula, initial encounter for closed fracture Category: Medical Plan MS. Micky Cardozo is a 29 year old female who presents today with her for routine follow up of left ankle fx, DOI 10/17/24. At her last visit she was referred to physical therapy to begin working on gentle range of motion and gait training in the boot. The goal is to wean her out of the boot and move to a supportive shoe. She presents to the office today in a supportive sneaker. Overall, the patient is doing very well but has some lingering stiffness and weakness. Patient does report some discomfort when ambulating for long periods of time. 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 While the office today the patient was given a lace-up ankle brace off the shelf. She will continue with physical therapy until all sessions have been completed. A return to work note for sedentary work only was provided to the patient for the next 4 weeks. Anticipation to return to work full-time regular duty in 4 weeks. She will follow up in 4 weeks with repeat x-rays, sooner if needed. X-rays of the left ankle which were obtained while in the office today and were reviewed by me, Ileana Marino PA-C, revealed routine healing of the distal fibula. Orders: Orders XR ankle LT min 3V Today M25.579 - Pain in unspecified ankle and joints of unspecified foot Coding Level of Care Code Est Pt Level 3 (97632) Diagnoses Closed fracture of left distal fibula S82.832A
[2025-01-21 09:20] VITALS: BMI 37.6
--- OUTSIDE RECORDS SUMMARY | 2025-01-21 09:20 | XMS_ITS | Clinical Summary ---
Author Organization [employer] Address [address] [place] [address] Care Team Providers Care Student Activities Director Name Role Phone Unavailable Primary Care Provider Unavailabl e Allergies No known active allergies Medications No known medications Social History Tobacco Use Types Packs/Day Years [...] patient's age to complete this topic Meningococcal B Vaccine Aged Out No l onger eligible based on patient's age to complete [...] Procedure Name Priority Date/Time Associated Diagnosis Comments PROPHYLAXIS - ADULT Routine 10/30/2023 8 :00 [...] Most Recently Relevant to Health Maintenance Insurance [facility] STAND ADULT
--- OUTSIDE RECORDS SUMMARY | 2025-01-21 09:20 | XMS_ITS | Encounter Summary ---
Author Organization [employer] Address [address] [place] [address] Care Team Providers Care Certified Shorthand Reporter Name Role Phone Unavailable Primary Care Provider Unavailabl e Encounter Details Date Type Department Care Team (Latest Contact Info) Description 06/08/2021 Abstract [facility] CONVERSIONS Dental, Provider, DDS Social History Tobacco [...]
== END 2025-01-21 09:36 | disposition home or self-care (01) ==
LOC: HO.HOS 08:53
PROVIDERS: Visit Provider Physician Assistant
DX: S82.832A Other fracture of upper and lower end of left fibula, initial encounter for closed fracture (principal)
CPT/HCPCS: 99024

== ENCOUNTER → 2025-01-21 08:55 | Outpatient (BNV) | payer OTHER, SELFPAY | PROVIDERS: Visit Provider Radiology Diagnostic Radiology | DX: M25.572 Pain in left ankle and joints of left foot (principal) | CPT/HCPCS: 73610 ==

== ENCOUNTER 2025-01-21 10:38 | Outpatient (REF) | payer OTHER, SELFPAY ==
--- NOTE | ~2025-01-21 | XR_ITS ---
CLINICAL HISTORY: M25.579 - Pain in unspecified ankle and joints of unspecified foot 3 view left ankle Comparison: DX/SR - XR ANKLE LT MIN 3V - 12/10/24 14:48 EDT Findings: Mildly displaced oblique fracture of the distal fibula. No significant loss of joint space, osteophytes, or erosions. No ankle effusion. No radiopaque foreign body. IMPRESSION: 1. No acute findings. This document has been electronically signed by: Ibeth Covington MD on 01/21/2025 16:43:33
--- OUTSIDE RECORDS SUMMARY | 2025-01-25 11:16 | XMS_ITS | Encounter Summary ---
Author Organization [employer] Address [address] [place] [address] Care Team Providers Care Edge Cutter Name Role Phone Unavailable Primary Care Provider Unavailabl e Encounter Details Date Type Department Care Team (Latest Contact Info) Description 06/08/2021 Abstract [facility] CONVERSIONS Dental, Provider, DDS Social History [...]
--- OUTSIDE RECORDS SUMMARY | 2025-01-25 11:16 | XMS_ITS | Clinical Summary ---
Author Organization [employer] Address [address] [place] [address] Care Team Providers Care Optical Goods Drill Operator Name Role Phone Unavailable Primary Care Provider [...] Most Recently Relevant to Health Maintenance Insurance [facility] STAND ADULT
== END 2025-01-21 10:39 | disposition home or self-care (01) ==
LOC: HO.HOSX 10:38
PROVIDERS: Visit Provider Physician Assistant
DX: S82.832D Other fracture of upper and lower end of left fibula, subsequent encounter for closed fracture with routine healing (principal); M25.572 Pain in left ankle and joints of left foot
CPT/HCPCS: 73610; 99212

== ENCOUNTER 2025-02-11 14:00 | Outpatient (RCR) | payer OTHER, SELFPAY ==
--- NOTE | 2024-12-18 10:56 | MHC.PT.EP ---
[facility] [place] [facility] [place] [facility] [place] Office [address] Pratima Herrera [address] [phone] F: [phone] F: [phone] F: [phone] F: [phone] Physical Therapy Plan of Care Date of Evaluation: 12/18/24 Date of Surgery: Diagnosis: Closed fracture of L distal fibula. 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 Pt is deemed an appropriate candidate to receive skilled PT services to address their physical impairments in order to improve their functional ability. Frequency and Duration: The patient will be seen 2 x / wk x 8 wks. Short Term Goals: Initiate home program. Pt will reports baseline pain with activity to at most /10; initial: 7-810. Wean from boot as appropriate. Durability Engineer Goals: I with home program. Pt will be able to ascend and descend 1 fl of stairs with reciprocal pattern wit at most a little bit of difficulty; initial: no reciprocal and quite a bit of difficulty. Pt will improve LEFO outcome by at least 9 points. Pt will be able to tolerate walking 2 blocks with managed Sx. Pt will ambulate with symmetrical gait w/o AD. Treatment Plan: Modalities to reduce pain, spasms and effusion. Manual therapy to restore motion and function. Therapeutic exercise to improve strength and flexibility. Neuromuscular re-education for posture and balance. Therapeutic activities to return to functional activities of daily living. Electronically signed by: Sanjiv Romano PT. Please sign and return to therapist. Thank you for your referral.
== END 2025-08-30 10:26 | disposition home or self-care (01) ==
LOC: HO.PT 14:00
PROVIDERS: PCP Internal Medicine; Visit Provider Physician Assistant
DX: S82.832D Other fracture of upper and lower end of left fibula, subsequent encounter for closed fracture with routine healing (principal); W01.0XXD Fall on same level from slipping, tripping and stumbling without subsequent striking against object, subsequent encounter
CPT/HCPCS: 97110; 97112; 97140; 97161; 97164; 97530

== ENCOUNTER 2025-02-18 08:30 | Outpatient (REF) | payer OTHER, SELFPAY ==
--- NOTE | ~2025-02-18 | XR_ITS ---
EXAMINATION: XR ANKLE, LEFT CLINICAL INFORMATION: M25.579 - Pain in unspecified ankle and joints of unspecified foot COMPARISON: January 21, 2025 TECHNIQUE: AP, lateral, and mortise views of the left ankle. FINDINGS: Diagonally oriented lucency involving the distal diaphysis/metaphysis of the fibula without callus formation. Tibiotarsal joint space is normal. No acute cortical disruption or gross malalignment. No metallic or radiopaque foreign body. No subcutaneous emphysema. No gross joint effusion. XR/XR ankle LT min 3V IMPRESSION: Nonunion fracture, distal diaphysis/metaphysis, left fibula. Electronically signed by: Ramon French MD 02/18/2025 09:20 AM EDT
--- OUTSIDE RECORDS SUMMARY | 2025-02-19 08:38 | XMS_ITS | Clinical Summary ---
Author Organization [employer] Address [address] [place] [address] Care Team Providers Care Solderer Electronic Name Role Phone Unavailable Primary Care Provider [...] Most Recently Relevant to Health Maintenance [facility]
== END 2025-02-18 08:31 | disposition home or self-care (01) ==
LOC: HO.HOSX 08:30
PROVIDERS: Visit Provider Physician Assistant
DX: S82.832D Other fracture of upper and lower end of left fibula, subsequent encounter for closed fracture with routine healing (principal)
CPT/HCPCS: 73610; 99212

== ENCOUNTER 2025-02-18 08:51 | Outpatient (AMB) | payer OTHER, SELFPAY ==
--- NOTE | 2025-02-18 08:58 | A.OFFVIS_ITS ---
Vital Signs 02/18/25 09:12 Height 5 ft 6 in Weight 233 lb BMI 37.6 Intake Visit Reasons: OV- LT ankle fx DOI 10/17/24 w/ xrays Intake Note: Kathe is a 29 year old female who presents today with her for a follow up of her left ankle fx, DOI 10/17/24. Patient reports she is doing so much better. No pain or discomfort at this time. She is requesting to go back to work with a restriction of no more than 100 stops for 4 weeks and to return regular duty and she will keep us posted. Allergies No Known Allergies Allergy (Verified 02/18/25 09:10) HPI HPI OV- LT ankle fx DOI 10/17/24 w/ xrays: Details: Ms. Micky Cardozo is a 29 year old female who presents today with her for routine follow up of left ankle fx, DOI 10/17/24. At her last appointment we discussed returning back to work with a lace-up ankle brace. She reports that she did attempt this but it has been very difficult and begins to be sore after much lifting pushing pulling injury I have a for [employer]. She is requesting that she has a limit of 100 stops for the next 2 weeks and then goes back to work full-time regular duty. Overall she is doing very well. She experiences some discomfort after being on her feet for a long period of time. [facility] Medical History Leg pain, medial Headache Overweight Depression Annual physical exam Asthma Family History Father No problems noted. Mother No problems noted. 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 Alcohol intake: current Alcohol intake frequency: holidays/special occasions only Patient Tobacco Use Status: Current everyday Tobacco user Cigarettes Per Day: 5 Years Smoked: 4 e-Cigarette/Vaping Use: Never Used service: No Current occupational status: employed Current occupation: [employer] w/[employer] Cognitive needs: No Hearing needs: No Vision needs: No Review of Systems Const All systems reviewed & are unremarkable except as noted in HPI and below Physical Exam Vital Signs: BMI result Body Mass Index 37.6 Const General: cooperative, healthy appearing and no acute distress Resp Effort & Inspection: normal respiratory effort and able to speak in complete sentences Cardio Rate: regular rate Peripheral pulses: Peripheral pulses 2+ throughout Skin Lesions: no lesions Rashes: no rashes Extrem Other: Left ankle: Able to perform dorsiflexion, plantar flexion, inversion and eversion with mild stiffness and discomfort. Negative anterior drawer. No tenderness to palpation medial or lateral malleolus. NVI. Assessment & Plan Assessment & Plan (1) Closed fracture of left distal fibula: Code(s): S82.832A - Other fracture of upper and lower end of left fibula, initial encounter for closed fracture Category: Medical Plan Ms. Micky Cardozo is a 29 year old female who presents today with her for routine follow up of left ankle fx, DOI 10/17/24. At her last appointment we discussed returning back to work with a lace-up ankle brace. She reports that she did attempt this but it has been very difficult and begins to be sore after much lifting pushing pulling injury I have a for [employer]. She is requesting that she has a limit of 100 stops for the next 4 weeks and then goes back to work full-time regular duty. Overall she is doing very well. She experiences some discomfort after being on her feet for a long period of time. While the office today, I provided the patient with a work note for a limit of 100 stops for the next 4 weeks and then she can return back to full-time regular duty. Patient can resume back to normal activities as tolerated. Should she have any increase in pain or concerns she will contact our office otherwise she will follow up PRN, sooner if needed. X-rays of the left ankle which were obtained while in the office today and were reviewed by me, Ileana Marino PA-C, revealed healed distal fibular fracture. Orders: Orders XR ankle LT min 3V Today M25.579 - Pain in unspecified ankle and joints of unspecified foot Coding Level of Care Code Est Pt Level 3 (25074) Diagnoses Closed fracture of left distal fibula S82.832A
[2025-02-18 09:12] VITALS: BMI 37.6
--- OUTSIDE RECORDS SUMMARY | 2025-02-18 09:22 | XMS_ITS | Clinical Summary ---
Author Organization [employer] Address [address] [place] [address] Care Team Providers Care Subsorter Name Role Phone Unavailable Primary Care Provider [...] 1994 HIV Screening 1994 SDOH Screening 1994 Disability Screening 1994 Alcohol/Substance Use Screening 2006 Family [...] COVID-19 Vaccine ( season) 2024 Influenza Vaccine (Season Ended) 2025 Tobacco Screening 09/29/2025 09/29/2024 Zoster Vaccines (1 [...] Most Recently Relevant to Health Maintenance Insurance [facility] ST[facility]
== END 2025-02-18 09:13 | disposition home or self-care (01) ==
LOC: HO.HOS 08:52
PROVIDERS: PCP Internal Medicine; Visit Provider Physician Assistant
DX: S82.832A Other fracture of upper and lower end of left fibula, initial encounter for closed fracture (principal)
CPT/HCPCS: 99213

== ENCOUNTER → 2025-02-18 08:54 | Outpatient (BNV) | payer OTHER, SELFPAY | PROVIDERS: Visit Provider Radiology Diagnostic Radiology | DX: S82.832K Other fracture of upper and lower end of left fibula, subsequent encounter for closed fracture with nonunion (principal) | CPT/HCPCS: 73610 ==

== ENCOUNTER 2025-04-29 08:47 | Outpatient (AMB) | payer OTHER, SELFPAY ==
--- NOTE | 2025-04-29 09:00 | A.OFFVIS_ITS ---
Vital Signs 04/29/25 09:13 Height 5 ft 6 in Weight 233 lb BMI 37.6 Intake Visit Reasons: OV- LT ankle fx DOI 10/17/24 w/ xrays Intake Note: Kathe is a 29 year old female who presents today with her for a follow up of her left ankle fx, DOI 10/17/24. 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 Patient reports they have her working 3 times a day right now. When she comes back from work she is in pain and her ankle is swollen all the time. Patient states that she is feeling better today and is wondering if she could do more at work. Patient also will give us a call if we have to change the note if it casues her a lot of pain. Allergies No Known Allergies Allergy (Verified 04/29/25 09:08) HPI HPI OV- LT ankle fx DOI 10/17/24 w/ xrays: Details: Ms. Micky Cardozo is a 30-year-old female who presents to the office today for routine follow-up status post left distal fibular fracture that occurred on 10/17/2024. This is a work-related injury. 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 Patient has been very active with her recovery participating in physical therapy and has recently been back to work with a limit of 100 stops. 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 She does report that she continues to have occasional pain and swelling. Pain does occasionally get to the level that causes her to limp. [facility] Medical History Leg pain, medial Headache Overweight Depression Annual physical exam Asthma Family History Father No problems noted. Mother No problems noted. 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 Alcohol intake: current Alcohol intake frequency: holidays/special occasions only Patient Tobacco Use Status: Current everyday Tobacco user Cigarettes Per Day: 5 Years Smoked: 4 e-Cigarette/Vaping Use: Never Used service: No Current occupational status: employed Current occupation: [employer] w/[employer] Cognitive needs: No Hearing needs: No Vision needs: No Review of Systems Const All systems reviewed & are unremarkable except as noted in HPI and below Physical Exam Vital Signs: BMI result Body Mass Index 37.6 Const General: cooperative, healthy appearing and no acute distress Resp Effort & Inspection: normal respiratory effort and able to speak in complete sentences Cardio Rate: regular rate Peripheral pulses: Peripheral pulses 2+ throughout Skin Lesions: no lesions Rashes: no rashes Extrem Other: Left ankle: Able to perform dorsiflexion, plantar flexion, inversion and eversion with no difficulties or discomfort. Negative anterior drawer. No tenderness to palpation medial or lateral malleolus. NVI. Psych Appearance: grossly normal Mental Status: mental status grossly normal Attitude: cooperative Assessment & Plan Assessment & Plan (1) Closed fracture of left distal fibula: Code(s): S82.832A - Other fracture of upper and lower end of left fibula, initial encounter for closed fracture Category: Medical Plan Ms. Micky Cardozo is a 30-year-old female who presents to the office today for routine follow-up status post left distal fibular fracture that occurred on 10/17/2024. This is a work-related injury. 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 Patient has been very active with her recovery participating in physical therapy and has recently been back to work with a limit of 100 stops. 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 She does report that she continues to have occasional pain and swelling. Pain does occasionally get to the level that causes her to limp. While in the office today, I recommended that the patient alternate between ibuprofen and Tylenol as needed for pain and swelling. She should continue performing her physical therapy exercises that she has learned. I have provided her with a work note to increase the amount of delivery stops to 150 for the next 4 weeks. After 4 weeks she will return full-time regular duty. She will follow up PRN, sooner if needed. X-rays of the left ankle which were obtained while in the office today and were reviewed by me, Ileana Marino PA-C, revealed healed left distal fibular fracture. Orders: Orders XR ankle LT min 3V Today M25.579 - Pain in unspecified ankle and joints of unspecified foot Coding Level of Care Code Est Pt Level 3 (62763) Diagnoses Closed fracture of left distal fibula S82.832A
[2025-04-29 09:13] VITALS: BMI 37.6
== END 2025-04-29 09:38 | disposition home or self-care (01) ==
LOC: HO.HOS 08:48
PROVIDERS: PCP Internal Medicine; Visit Provider Physician Assistant
DX: S82.892A Other fracture of left lower leg, initial encounter for closed fracture (principal)
CPT/HCPCS: 99213

== ENCOUNTER → 2025-04-29 08:49 | Outpatient (BNV) | payer OTHER, SELFPAY | PROVIDERS: Visit Provider Radiology Body Imaging | DX: M25.572 Pain in left ankle and joints of left foot (principal) | CPT/HCPCS: 73610 ==

== ENCOUNTER 2025-04-29 11:00 | Outpatient (REF) | payer OTHER, SELFPAY ==
--- NOTE | ~2025-04-29 | XR_ITS ---
EXAMINATION: XR ANKLE, LEFT CLINICAL INFORMATION: M25.579 - Pain in unspecified ankle and joints of unspecified foot COMPARISON: Radiographs on February 18, 2025 TECHNIQUE: AP, lateral, and mortise views of the left ankle. FINDINGS: Previously seen oblique fracture line through the distal diaphysis/metaphysis of the fibula is not well seen on the current examination, partially due to superimposed structures as well as presumed interval healing. No new fractures. No dislocation. XR/XR ankle LT min 3V IMPRESSION: Presumed healing fracture of the distal fibula. Electronically signed by: Deisi Oliva MD 04/29/2025 09:05 AM EDT
--- OUTSIDE RECORDS SUMMARY | 2025-04-30 11:06 | XMS_ITS | Clinical Summary ---
Author Organization [employer] Address [address] [place] [address] Care Team Providers Care Store Planner Name Role Phone Unavailable Primary Care Provider [...] Use Screening 2006 Family Planning (PISQ) 2009 HPV Vaccines (1 - 3-dose series) 2009 Hepatitis C Screening 2012 DTaP/Tdap/Td Vaccines [...] Vaccine ( season) 2024 Influenza Vaccine (#1) 2025 Tobacco Screening 09/29/2025 09/29/2024 Zoster Vaccines [...] Years) and At-Risk Patients (6 to 49) Years Aged Out No longer eligible based on [...] Most Recently Relevant to Health Maintenance [facility]
== END 2025-04-29 11:01 | disposition home or self-care (01) ==
LOC: HO.HOSX 11:00
PROVIDERS: Visit Provider Physician Assistant
DX: S82.832A Other fracture of upper and lower end of left fibula, initial encounter for closed fracture (principal); M25.572 Pain in left ankle and joints of left foot; M79.89 Other specified soft tissue disorders; W00.0XXD Fall on same level due to ice and snow, subsequent encounter
CPT/HCPCS: 73610; 99212

== ENCOUNTER 2025-06-10 12:27 | Outpatient (AMB) | payer OTHER, SELFPAY ==
[2025-06-10 12:29] VITALS: BP 102/66; PULSE 66; RESP 19; TEMP 36.8; O2SAT 100; BMI 35.0
--- NOTE | 2025-06-10 12:29 | A.OFFPC_ITS ---
Vital Signs 06/10/25 12:29 Height 5 ft 6 in Weight 217 lb BMI 35.0 BP 102/66 Blood Pressure Location Rt brachial Position Sitting Respiration 19 Pulse 66 Pulse Source Pulse Oximeter Temp 98.3 F Temp Source Oral Pulse Oximetry (%) 100 Oxygen Delivery Method Room Air Intake Visit Reasons: follow up Intake Note: Pt is here today for a follow up visit. Allergies No Known Allergies Allergy (Verified 06/10/25 12:29) Medication List - Last Reconciled 06/10/25 by Tanya Billy MD albuterol sulfate 90 mcg/actuation 2 puffs inhalation Q6H PRN hydroxyzine HCl 10 mg PO TID PRN ibuprofen 600 mg PO Q6H PRN omeprazole 20 mg PO DAILY penicillin V potassium 500 mg PO TID 10 days Zepbound (tirzepatide (weight loss)) 12.5 mg (0.5 mL) subcut QWEEK NS Tobacco use date assessed: 06/10/25 Dental Screening Dental Screen Date: 06/10/25 Did you have a dental visit in the last 12 months?: Yes Did you have a dental problem in the last 6 months where you did not have access to dental care?: No Was dental information given to patient?: Patient has dentist HPI follow up HPI Details Patient complains of right breast lump she found a month ago. Patient has been taking Zebound for weight loss and reports slightly increased anxiety but otherwise tolerating medication well. [facility] Medical History Lump of right breast Leg pain, medial Headache Overweight Depression Annual physical exam Asthma Surgical History No pertinent past surgical history Family History Father No problems noted. Mother No problems noted. 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 1. Little interest or pleasure in doing things: not at all 2. Feeling down, depressed, or hopeless: not at all 3. Trouble falling or staying asleep, or sleeping too much: nearly every day 4. Feeling tired or having little energy: several days 5. Poor appetite or overeating: nearly every day 6. Feeling bad about yourself - or that you are a failure or have let yourself or your family down: not at all 7. Trouble concentrating on things, such as reading the newspaper or watching television: not at all 8. Moving or speaking so slowly that other people could have noticed. Or the opposite - being so fidgety or restless that you have been moving around a lot more than usual: not at all 9. Thoughts that you would be better off or of hurting yourself in some way: not at all Total score: 7 Depression Screening Interpretation: Negative Depression Screening Done: Yes 71620 - PHQ-9 Billing: Yes Source: Developed by Drs. Jean Paul Buckley, Tara Dominguez, Camden Maldonado and colleagues, with an educational katina from [employer]). Thrive Questionnaire Date Thrive assessed: 06/10/25 I am a: Patient What is your living situation today?: I have a steady place to live Within the past 12 months, did the food you bought not last and you didn't have the money to get more?: Never true Within the past 12 months, did you worry whether your food would run out before you got money to buy more?: Never true Do you have trouble paying for medicines?: No Do you have trouble getting transportation to medical appointments?: No Do you have trouble paying your heating and electricity bill?: No Do you have trouble taking care of your child, family member or friend?: No Do you have trouble with day-to-day activities such as bathing, preparing meals, shopping, managing finances, etc.?: No Are you currently unemployed and looking for a job?: No Are you interested in more education?: No Please select the resources that you would like help with: None Currently or been in a relationship where the following occur: No concerns reported THRIVE Score: 0 AUDIT C Alcohol Use Questionnaire (AUDIT-C) 1. How often do you have a drink containing alcohol?: 2-3 times a week 2. How many drinks containing alcohol do you have on a typical day when you are drinking?: 3 or 4 3. How often do you have six or more drinks on one occasion?: Monthly Total Score: 6 YASMIN-7 AMB Questionnaire YASMIN-7 Date YASMIN - 7 assessed: 06/10/25 Feeling nervous, anxious, or on edge: 2 = More than half the days Not being able to stop or control worryin = More than half the days Worrying too much about different things: 2 = More than half the days Trouble relaxin = Several days Being so restless that it is hard to sit still: 0 = Not at all Becoming easily annoyed or irritable: 0 = Not at all Feeling afraid as if something awful might happen: 0 = Not at all Total YASMIN-7 score (0-4 normal; 5-9 mild; 10-14 moderate; 15-21 severe): 7 Source: Developed by Drs. Jean Paul Buckley, Tara Dominguez, Camden Maldonado and colleagues, with an educational katina from [employer] ([employer]). YASMIN-7 Assessment Billing YASMIN-7 Assessment Tool: YASMIN-7 Assessment 05663 Review of Systems Const All systems reviewed & are unremarkable except as noted in HPI and below Card Reports no additional complaints Resp Reports no additional complaints GI Reports no additional complaints Physical exam (Primary Care) Vital Signs: Last Vital Signs Temp 98.3 F 06/10/25 12:29 Pulse 66 06/10/25 12:29 Resp 19 06/10/25 12:29 BP 102/66 06/10/25 12:29 Pulse Ox 100 06/10/25 12:29 Oxygen Delivery Method Room Air 06/10/25 12:29 BMI result Body Mass Index 35.0 Tobacco/Smoking Status: Tobacco use Status Tobacco use date assessed 06/10/25 06/10/25 12:30 Patient Tobacco Use Status Current everyday Tobacco 06/10/25 12:30 e-Cigarette/Vaping Use Never Used 06/10/25 12:30 PHQ-9: PHQ-9 Score PHQ-9: Total score 7 06/10/25 12:45 Depression Screening Interpretation: Negative Thrive Assessment: Date of Thrive Assessment Date Thrive assessed 06/10/25 06/10/25 12:30 Currently or been in a relationship where the following occur: No concerns reported Const General: no acute distress HENMT Head: Yes normal to inspection Eyes General: appearance normal, both eyes and all related structures Chest Breast/axilla palpation: normal palpation of the axillae and abnormal palpation of the breast (right 11 oclock thickened tissue, unclear borders, tender) Resp Effort & Inspection: normal respiratory effort Auscultation: clear to auscultation bilaterally Cardio Rhythm: regular rhythm Heart sounds: S1 normal heart sound present and S2 normal heart sound present Coding Level of Care Code Est Pt Level 4 (53067) Diagnoses Lump of right breast N63.10 Obesity E66.9 Additional Codes YASMIN-7 Assessment Billing - YASMIN-7 Assessment Tool: YASMIN-7 Assessment 70023 ([id number]) PHQ-9 - 32542 - PHQ-9 Billing: Yes ([id number]) Assessment & Plan Assessment & Plan (1) Lump of right breast: Comment: 11 oclock Code(s): N63.10 - Unspecified lump in the right breast, unspecified quadrant Category: Medical Plan: Obtain diagnostic mammogram and ultrasound to evaluate for right breast lump (2) Obesity: Comment: BMI 43 Code(s): E66.9 - Obesity, unspecified Category: Medical Plan: Continue current medication Orders: Orders MM tomosynthesis diagnostic BI Today N63.10 - Unspecified lump in the right b reast, unspecified quadrant US breast RT limited Today N63.10 - Unspecified lump in the right breast, unspecified quadrant
--- OUTSIDE RECORDS SUMMARY | 2025-06-10 13:59 | XMS_ITS | Encounter Summary ---
Author Organization [employer] [facility] Address [address] [place] [address] Care Team Providers Care Coreroom Foundry Laborer Name Role Phone Unavailable Primary Care Provider Unavailabl e Encounter Details Date Type Department Care Team (Latest Contact Info) Description 06/08/2021 Abstract [facility] CONVERSIONS Dental, Provider, DDS Social History Tobacco [...]
--- OUTSIDE RECORDS SUMMARY | 2025-06-10 13:59 | XMS_ITS | Clinical Summary ---
Author Organization [employer] Address [address] [place] [address] Care Team Providers Care Hyster Machine Operator Name Role Phone Unavailable Primary Care [...] 23, 12/06/2021, 10/25/2020 COVID-19 Vaccine ( season) 2025 Influenza Vaccine (#1) 2025 Tobacco Screening 09/29/2025 [...] Most Recently Relevant to Health Maintenance Insurance [facility] STAND ADULT
== END 2025-06-10 15:10 | disposition home or self-care (01) ==
LOC: HO.HMCC 12:28
PROVIDERS: Visit Provider Internal Medicine
DX: N63.11 Unspecified lump in the right breast, upper outer quadrant (principal); E66.9 Obesity, unspecified; Z68.35 Body mass index [BMI] 35.0-35.9, adult

== ENCOUNTER → 2025-06-10 12:27 | Outpatient (BNVA) | payer OTHER, SELFPAY | PROVIDERS: Visit Provider Internal Medicine | DX: N63.10 Unspecified lump in the right breast, unspecified quadrant (principal); E66.9 Obesity, unspecified; Z68.35 Body mass index [BMI] 35.0-35.9, adult | CPT/HCPCS: 96127; 99212 ==

== ENCOUNTER 2025-08-10 10:41 | Outpatient (REF) | payer OTHER, SELFPAY ==
--- NOTE | ~2025-08-10 | MM_ITS ---
EXAMINATION(S): 1. MM DIAGNOSTIC DIGITAL BREAST TOMOSYNTHESIS, RIGHT 2. TARGETED ULTRASOUND OF THE RIGHT BREAST CLINICAL INFORMATION: According to requisition: Right breast lump at 11:00 COMPARISON: None. This is a baseline study. TECHNIQUE: Digital breast tomosynthesis is performed in both the mediolateral oblique and craniocaudal views along with computer-aided detection (CAD). Synthesized 2D images are generated from the tomosynthesis. Skin BB marker was placed at the location of the palpable concern as indicated by the patient in the upper outer quadrant of the right breast. FINDINGS: BREAST COMPOSITION: The breasts are heterogeneously dense, which may obscure small masses. RIGHT BREAST: No significant masses, suspicious calcifications or other abnormalities are seen. In particular, no suspicious findings adjacent to the skin BB marker in the upper outer quadrant. Targeted ultrasound of the right breast was performed at the location of the palpable concern as follows: -At the location of the palpable concern as indicated by the requisition. The survey along the 11:00 axis did not reveal suspicious sonographic findings. -At the location of the palpable concern as indicated by the patient. The survey shows a 0.5 x 0.2 x 0.5 cm hypoechoic structure at 12 o'clock position 5 cm from the nipple. No abnormal vascularity demonstrated with color Doppler evaluation. LEFT BREAST: No significant masses, suspicious calcifications or other abnormalities are seen. MM/MM tomosynthesis diagnostic BI IMPRESSION: RIGHT BREAST: 1. No suspicious mammographic or sonographic findings at the area of palpable concern per requisition along the 11:00 axis. 2. At location of the palpable concern as indicated by the patient, there is a 0.5 cm solid mass or breast tissue lobule or lymph node at 12 o'clock position 5 cm from the nipple. Probably benign. A 6-month follow-up ultrasound is recommended. LEFT BREAST: Negative, no mammographic evidence of malignancy. ASSESSMENT: BI-RADS: Category 3: Probably benign RECOMMENDATION: 6 Month F/U Results were provided to the patient at time of visit by the technologist. Electronically signed by: eDisi Oliva MD 08/10/2025 11:37 AM [facility]
--- OUTSIDE RECORDS SUMMARY | 2025-08-10 12:28 | XMS_ITS | Clinical Summary ---
Author Organization [employer] Address [address] [place] [address] Care Team Providers Care Machine Greaser Name Role Phone Unavailable Primary Care Provider [...] Most Recently Relevant to Health Maintenance [facility]
--- OUTSIDE RECORDS SUMMARY | 2025-08-10 12:28 | XMS_ITS | Encounter Summary ---
Author Organization [employer] [facility] Address [address] [place] [address] Care Team Providers Care Gathering Machine Setter Name Role Phone Unavailable Primary Care Provider [...]
== END 2025-08-10 10:42 | disposition home or self-care (01) ==
LOC: HO.MAMMO 10:41
PROVIDERS: Visit Provider Internal Medicine
DX: N63.11 Unspecified lump in the right breast, upper outer quadrant (principal)
CPT/HCPCS: 76642; 77062; 77066

== ENCOUNTER → 2025-08-10 10:44 | Outpatient (BNV) | payer OTHER, SELFPAY | PROVIDERS: Visit Provider Radiology Body Imaging | DX: N63.11 Unspecified lump in the right breast, upper outer quadrant (principal) | CPT/HCPCS: 76642; 77062; 77066 ==

== ENCOUNTER 2025-09-07 08:49 | Outpatient (REF) | payer OTHER, SELFPAY ==
[2025-09-07 10:48] LABS: Resp Syncy Virus RNA Qual PCR NEGATIVE (Negative); SARS COV2 PCR INHOUSE NEGATIVE (Negative)
== END 2025-09-07 08:50 | disposition home or self-care (01) ==
LOC: HO.LNP 08:49
PROVIDERS: Physician Assistant; PCP Internal Medicine
DX: J02.9 Acute pharyngitis, unspecified (principal); R09.89 Other specified symptoms and signs involving the circulatory and respiratory systems
CPT/HCPCS: 87637; 87880; 99212

== ENCOUNTER 2025-09-07 08:49 | Outpatient (AMB) | payer OTHER, SELFPAY ==
[2025-09-07 08:58] VITALS: BP 104/66; PULSE 87; TEMP 37; O2SAT 100; BMI 32.6
--- NOTE | 2025-09-07 08:58 | AM.OFFWIN_ITS ---
Intake Vital Signs 09/07/25 08:58 Height 5 ft 6 in Weight 202 lb BMI 32.6 BP 104/66 Blood Pressure Location Rt brachial Position Sitting Pulse 87 Pulse Source Pulse Oximeter Temp 98.6 F Temp Source Oral Pulse Oximetry (%) 100 Oxygen Delivery Method Room Air Intake Visit Reasons: EP Sore throat, left ear pain, cough, headache Intake Note: pt presents with sore throat, chest congestion with coughing, sinus congestion, LT ear pain and headaches x3-4 days Patient Tobacco Use Status: Current everyday Tobacco user Allergies No Known Allergies Allergy (Verified 09/07/25 09:00) Do you need a note to return to daycare/school/sports/work: No HPI HPI Comments History of Present Illness Details Patient is a 30yo F who presents with significant other for cold symptoms Her is translating for her She has had 3 days of symptoms + ST, headache and L ear pain ST worse with swallowing 06/18 She has some congestion without runny nose Slight cough without phlegm SOB or CP No fever, chills, body aches, fatigue or decreased appetite Ibuprofen with some relief PFSH Medical History Lump of right breast Leg pain, medial Headache Overweight Depression Annual physical exam Asthma Surgical History No pertinent past surgical history Family History Father No problems noted. Mother No problems noted. 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 Alcohol intake: current Alcohol intake frequency: holidays/special occasions only Patient Tobacco Use Status: Current everyday Tobacco user Cigarettes Per Day: 4 Years Smoked: 4 e-Cigarette/Vaping Use: Never Used service: No Current occupational status: employed Current occupation: [employer] w[employer] Cognitive needs: No Hearing needs: No Vision needs: No Review of Systems Const Denies chills, Denies fatigue, Denies fever(s), Reports headache(s) and Denies poor appetite ENT Reports otalgia, Reports headache(s), Reports nasal congestion, Denies nasal discharge, Denies sinus pain, Denies sinus pressure, Reports sore throat and Denies throat swelling Card Denies chest pain and Denies dyspnea Resp Denies change in phlegm color, Reports cough and Denies dyspnea Musc Denies myalgias Neuro Reports headache(s) Endo Denies fatigue Aller/Immun Denies throat swelling Physical Exam Exam Exam: General: Non-toxic, NAD. Speaking full sentences. Skin: Warm dry throughout Eye: EOMI HENT: Airway patent. Uvula midline. Slight pharyngeal erythema without exudates or edema. No TELEVISION REPAIRMAN. Bilateral canals clear. TM non-erythematous, non-bulging. No TM perforation or hemotympanum noted. Lymph: No lymphadenopathy Respiratory: CTA bilaterally. No wheezes, rales or rhonchi Cardiac: RRR. No murmur MSK: Full ROM extremities. Neurology: Alert. No aphasia or facial droop. Gait without abnormality Psych: Good mood and affect Vital Signs: Last Vital Signs Temp 98.6 F 09/07/25 08:58 Pulse 87 09/07/25 08:58 BP 104/66 09/07/25 08:58 Pulse Ox 100 09/07/25 08:58 Oxygen Delivery Method Room Air 09/07/25 08:58 BMI result Body Mass Index 32.6 Results AMB Rapid Strep AMB Rapid Strep Negative Last Edit by Valentina Beltran CMA on 09/07/25 09: 27 Assessment & Plan Assessment & Plan (1) Pharyngitis: Code(s): J02.9 - Acute pharyngitis, unspecified Qualifiers: Pharyngitis/tonsillitis etiology: unspecified etiology Qualified Code(s): J02.9 - Acute pharyngitis, unspecified Plan: Patient seen and evaluated. COVID/Flu sent Strep in office: negative Pt non-toxic appearing Ibuprofen sent to pharmacy Declined work note needed Increase fluid hydration and rest Patient gave verbal understanding and had no additional questions or concerns at time of discharge All questions answered Orders: Orders AMB Rapid Strep Screen Today Maggie Terry PA-C Z13.9 - Encounter for screening, unspecified SARS-CoV2/FLU/RSV Today Елена Diana PA-C R09.89 - Other specified symptoms and signs involving the circulatory and respiratory systems Medications: New ibuprofen 800 mg PO Q8H PRN 20 tabs 0RF pain Maggie Terry PA-C Coding Level of Care Code Est Pt Level 3 (27894) Diagnoses Pharyngitis, unspecified etiology J02.9 Pharyngitis/tonsillitis etiology: unspecified etiology
--- OUTSIDE RECORDS SUMMARY | 2025-09-07 10:43 | XMS_ITS | Clinical Summary ---
Author Organization [employer] Address [address] [place] [address] Care Team Providers Care [place] Superintendent Of Schools Name Role Phone Unavailable Primary Care Provider [...] Most Recently Relevant to Health Maintenance [facility] ST[facility]
--- OUTSIDE RECORDS SUMMARY | 2025-09-07 10:43 | XMS_ITS | Encounter Summary ---
Author Organization [employer] [facility] Address [address] [place] [address] Care Team Providers Care Paperhanger Supervisor Name Role Phone Unavailable Primary Care Provider Unavailabl e Encounter Details Date Type Department Care Team (Latest Contact Info) Description 06/08/2021 Abstract [facility] CONVERSIONS Dental, Provider, DDS Social [...]
== END 2025-09-07 09:33 | disposition home or self-care (01) ==
PROVIDERS: PCP Internal Medicine; Visit Provider Physician Assistant
DX: Z13.9 Encounter for screening, unspecified (principal); J02.9 Acute pharyngitis, unspecified